=== PATIENT | female | born 1975 | race Caucasian/White ===

== ENCOUNTER 2020-05-18 17:09 | Inpatient (IN) | payer MEDICAID ==
[~2020-05-18] VITALS: Ht 180.3 cm; Wt 61.7 kg
[2020-05-18 17:56] LABS: BASOPHILS % (AUTO) 0.2 % (0.0-2.0); HEMATOCRIT 38 % (33-45); HEMOGLOBIN 12.6 g/dL (11.5-14.8); LYMPHOCYTES # (AUTO) 0.9 /CMM (0.8-4.8); LYMPHOCYTES % (AUTO) 12.6 % (20.0-44.0); MEAN CORPUSCULAR HGB CONC 34 g/dl (31.0-36.0); MEAN CORPUSCULAR VOLUME 89 fL (82-100); MONOCYTES # (AUTO) 0.2 /CMM (0.1-1.30); MONOCYTES % (AUTO) 2.9 % (2.0-12.0); NEUTROPHILS # (AUTO) 5.8 /CMM (1.8-8.9); NEUTROPHILS % (AUTO) 84.3 % (43.0-81.0); PLATELET COUNT (AUTO) 365 /CMM (150-450); RED BLOOD CELL COUNT(AUTO) 4.19 MIL/uL (4.0-5.2); WHITE BLOOD COUNT (AUTO) 6.9 K/uL (4.3-11.0)
[2020-05-18 18:04] LABS: CALCIUM, SERUM 8.8 mg/dL (8.5-10.1); CARBON DIOXIDE 16 mmol/L (21-32); CHLORIDE 98 mmol/L (98-107); CREATININE 0.9 mg/dL (0.6-1.3); GLUCOSE 329 mg/dL (74-106); POTASSIUM 3.7 mmol/L (3.5-5.1); SODIUM SERUM 135 mmol/L (136-145); UREA NITROGEN, BLOOD 15 mg/dL (7-18)
[2020-05-18] MEDS ORDERED: GABA600T12 PO (18:07)
[2020-05-18] MEDS ORDERED: INSU100I19 SQ (18:07)
[2020-05-18] MEDS ORDERED: LEVO150T8 PO (18:07)
[2020-05-18] MEDS ORDERED: GABA300C PO (18:07)
[2020-05-18] MEDS ORDERED: INSU100I4 SQ (18:07)
[2020-05-18 18:10] LABS: ALANINE AMINOTRANSFERASE 22 U/L (12-78); ALBUMIN 2.8 g/dL (3.4-5.0); ALKALINE PHOSPHATASE 58 U/L (46-116); ASPARTATE AMINOTRANSFERASE 34 U/L (15-37); BILIRUBIN,TOTAL 0.4 mg/dL (0.2-1.0)
[2020-05-18] MEDS ORDERED: INSULIN REGULAR, HUMAN 100 UNIT/ML 10 ML VIAL ONE (19:59)
[2020-05-18] MEDS ORDERED: IV NS 0.9% 1,000 ML IV PRN (20:00)
[2020-05-18] MEDS ORDERED: CEFTRIAXONE 1GM BAG (ER ONLY) 1 GM/50 ML PIGGYBACK IV ONE (20:00)
[2020-05-18] MEDS ORDERED: AZITHROMYCIN 500 MG in IV D5W 250 ML IV ONE (20:00)
[2020-05-18] MEDS ORDERED: INSULIN REGULAR, HUMAN 100 UNIT/ML 10 ML VIAL SQ ONE (20:00)
[2020-05-18] MEDS ORDERED: INSULIN REGULAR, HUMAN 100 UNIT in IV NS 0.9% 100 ML IV ONE ×2 (20:00)
[2020-05-18 20:05] LABS: CALCIUM, SERUM 8.9 mg/dL (8.5-10.1); CREATININE 0.8 mg/dL (0.6-1.3); POTASSIUM 3.6 mmol/L (3.5-5.1)
[2020-05-18 20:08] LABS: PHOSPHORUS 2.6 mg/dL (2.5-4.9)
--- NOTE | 2020-05-18 20:09 | NUR ---
TOOK OVER PT CARE. PT AAOX4. PER TRIAGE AND ASSESSMENT C/O COUGH AND CONGESTION X2 DAYS. STATED HER SON IS COVID POSITIVE. PT WAS ORIGIONALLY IN THE TENT. PT WAS PLACED IN BED 16 ON CERTIFIED CYTOTECHNOLOGIST AND PULSE OX AT 2000. UPON PLACEMENT 2 LINES INITIATED, 20G RAC & 20G LAC. BG WAS CHECKED @285, I REPORTED TO THE PA AND AWAITING ORDERS.
--- NOTE | 2020-05-18 20:12 | NUR ---
UPON CHECKING BG, 280, PA AWARE. PT ORDERED TO CANCEL INSULIN DRIP, BUT CONTINUE WITH 8 UNITS OF INSULIN SQ. Addendum: 05/18/20 at 2038 by KENDYOR 285 BG
--- NOTE | 2020-05-18 20:17 | NUR ---
PA ORDERED FOR 1L NS BOLUS. CANCEL 1L NS 250/HR ORDER.
[2020-05-18] MEDS ORDERED: CEFTRIAXONE 1GM BAG (ER ONLY) 50 ML IV ONE (20:26)
[2020-05-18] MEDS ORDERED: AZITHROMYCIN 500 MG VIAL ONE (20:26)
--- NOTE | 2020-05-18 20:28 | NUR ---
ALICIAID SWABBED, SENT TO LAB.
[2020-05-18] MEDS ORDERED: IV NS 0.9% 1,000 ML BAG IV ONE (20:30)
--- NOTE | 2020-05-18 20:35 | NUR ---
URINE COLLECTED, SENT TO LAB.
--- NOTE | 2020-05-18 20:35 | NUR ---
PT SAT 88% SWITCHED TO 4L NC, SAT 92%. PA AWARE.
--- NOTE | 2020-05-18 20:38 | NUR ---
TEMP 98.3
--- NOTE | 2020-05-18 20:39 | NUR ---
O2 SAT 95%. 4L.
[2020-05-18 20:43] LABS: BILIRUBIN,URINE SMALL (NEGATIVE); COLOR,URINE YELLOW (YELLOW); LEUKOCYTE ESTERASE ,URINE Negative (NEGATIVE); NITRITE, URINE Negative (NEGATIVE); PROTEIN,URINE >=300 mg/dl (NEGATIVE); UGLUCOSE 500 MG/DL mg/dL (NEGATIVE); UROBILINOGEN,URINE 0.2 EU/dL (0.2)
--- NOTE | 2020-05-18 20:52 | NUR ---
PT NOW RESTING COMFORTABLY. VSS.
--- NOTE | 2020-05-18 21:01 | NUR ---
REC'D POS COVID RESULTS. AWARE
--- NOTE | 2020-05-18 21:08 | NUR ---
BG 300, PA AWARE.
[2020-05-18 21:13] LABS: BACTERIA,URINE Rare /HPF (None Seen)
[2020-05-18 21:14] LABS: WBC,URINE 0-2 /HPF (0-3)
--- NOTE | 2020-05-18 21:37 | NUR ---
DR. MCCANN PAGED PER ER ORDER.
--- NOTE | 2020-05-18 21:49 | NUR ---
PT RESTING COMFORTABLY. PROVIDED WITH BLANKETS.
[2020-05-18 22:01] LABS: CALCIUM, SERUM 8.6 mg/dL (8.5-10.1); CREATININE 0.7 mg/dL (0.6-1.3); POTASSIUM 3.8 mmol/L (3.5-5.1)
[2020-05-18 22:05] LABS: MAGNESIUM 2.1 mg/dL (1.8-2.4); PHOSPHORUS 2.4 mg/dL (2.5-4.9)
--- NOTE | 2020-05-18 22:43 | NUR ---
DR. MCCANN PAGED PER ER ORDER.
--- NOTE | 2020-05-18 23:10 | NUR ---
PT C/O NAUSEA. MD AWARE
[2020-05-18] MEDS ORDERED: ONDANSETRON HCL/PF 4 MG/2 ML VIAL ONE (23:14)
[2020-05-18] MEDS ORDERED: ONDANSETRON HCL/PF 4 MG/2 ML VIAL IV PRN (23:30)
[2020-05-18 23:59] LABS: CALCIUM, SERUM 8.4 mg/dL (8.5-10.1); CREATININE 0.7 mg/dL (0.6-1.3); PHOSPHORUS 1.8 mg/dL (2.5-4.9); POTASSIUM 3.6 mmol/L (3.5-5.1)
--- NOTE | 2020-05-19 00:53 | NUR ---
PT PROVIDED WITH BED BRUNILDA. JENNY.
[2020-05-19] MEDS ORDERED: HYDROCODONE/APAP 5/325MG TABLET PO PRN (01:30)
[2020-05-19] MEDS ORDERED: ZOLPIDEM TARTRATE 5 MG TABLET PO PRN (01:30)
[2020-05-19] MEDS ORDERED: MAGNESIUM HYDROXIDE 30 ML UDC PO PRN (01:30)
[2020-05-19] MEDS ORDERED: MAG HYDROX/AL HYDROX/SIMETH 30 ML UDC PO PRN (01:30)
[2020-05-19] MEDS ORDERED: Z GUARD REMEDY 2 OZ OINT TP PRN (01:30)
[2020-05-19] MEDS ORDERED: DEXTROSE 50%-WATER 50 ML DISP.SYRIN IV PRN (01:30)
--- NOTE | 2020-05-19 02:52 | NUR ---
PT RESTING COMFORTABLY. VSS. ASLEEP.
[2020-05-19] MEDS ORDERED: ACETAMINOPHEN 325 MG TABLET ONE (03:15)
[2020-05-19] MEDS: ACETAMINOPHEN 325 MG TABLET PO PRN (03:25)
--- NOTE | 2020-05-19 03:33 | NUR ---
UPON ROUNDING, PT NOTED SAT 88% ON 4L NC. PT WAS REPOSITIONED, TEMP WAS CHECKED, 102.7. PT WAS GIVEN TYLENOL 650MG PO. COOLING MEASURES INITIATED, PT PLACED ON 6L NC. PT NOW SAT 91%. COLD WATER WAS GIVEN FOR THE PT TO DRINK. WILL RECHECK TEMP.
--- NOTE | 2020-05-19 05:05 | NUR ---
RECHECKED TEMP: 99.2. PT RESTING COMFORTABLY.
--- NOTE | 2020-05-19 07:39 | NUR ---
REPORT GIVEN TO MARKY LEON FOR WILLIAN
[2020-05-19] MEDS ORDERED: REMDESIVIR (CHARGED) 200 MG, *LOADING DOSE 1 EA in IV NS 0.9% 210 ML IV ONE (11:00)
[2020-05-19] MEDS: GABAPENTIN 300 MG CAPSULE PO SCH (11:21)
[2020-05-19] MEDS: APIXABAN 5 MG TABLET PO SCH ×2 (11:22→17:14)
[2020-05-19] MEDS: BLOOD SUGAR DIAGNOSTIC 1 EACH STRIP VI SCH ×3 (11:24→22:57)
[2020-05-19] MEDS: DEXAMETHASONE SOD PHOSPHATE 10 MG/ML VIAL IV SCH (11:37)
[2020-05-19] MEDS: LEVOTHYROXINE SODIUM 50 MCG TABLET PO SCH (11:47)
--- NOTE | 2020-05-19 13:30 | NUR ---
PT OFFERED FOOD AND IS STILL REFUSING.
--- NOTE | 2020-05-19 16:13 | NUR ---
Patient lives locally with her daughter. Prior to admission, she was working, ambulatory and independent with adl's. Family involved and supportive. She plan to return home once discharge. Addendum: 05/19/20 at 1613 by REESE JONES RN Amended: Links added.
[2020-05-19] MEDS ORDERED: ONDANSETRON HCL/PF 4 MG/2 ML VIAL ONE (16:15)
[2020-05-19] MEDS: ONDANSETRON HCL/PF 4 MG/2 ML VIAL IVP PRN (16:19)
--- NOTE | 2020-05-19 16:20 | NUR ---
PT C/O NAUSEA. ZOFRAN IVP GIVEN. SEE EMAR.
[2020-05-19] MEDS: INSULIN REGULAR, HUMAN 100 UNIT/ML 3 ML VIAL SQ PRN (17:39)
--- NOTE | 2020-05-19 18:30 | NUR ---
REPORT GIVEN TO MICHI. AWAITING TRANSFER TO FLOOR.
[2020-05-19] MEDS: GABAPENTIN 100 MG CAPSULE PO SCH (18:34)
--- NOTE | 2020-05-19 18:50 | NUR ---
RN NOTES PT TRANSFERRED FROM ER. PT CAME FROM HOME ALERT ORIENTED X4 LAO SPEAKING. PT ON 4L OF OXYGEN VIA NASAL CANULA PT HAS SHORTNESS OF BREATH, AND COUGHING. PT DOES NOT REPORT ANY PAIN AT THIS TIME. PT HAS IV ACCESS ON THE LEFT AC 2O KADI NO SWELLING, REDNESS AT SITE FLUSHING WELL.SKIN IS CLEAN NO DISCOLORATION VISIBLE OR REPORTED. BOWEL SOUNDS PRESENT AND ACTIVE ON ALL FOUR QUADRANTS. LUNG SOUNDS ARE DIMINISHED BILATERALLY. BED IS IN A LOCKED POSITION, CALL LIGHT WITHIN REACH PATIENT IS AMBULATORY WITH ASSISTANCE OF 1 PERSON Addendum: 05/19/20 at 2002 by EILEEN SCOTT RN PT HAS NO SOB ON O2 AT 4L/MIN VIA NC.WITH OCCASIONAL COUGHING BUT NOT IN DISTRESS.PT DENIES DISCOMFORT.CALL LIGHT PLACED WITHIN REACH.WILL CONTINUE TO MONITOR
[2020-05-19 19:00] VITALS: BP 131/79
[2020-05-19 21:00] VITALS: BP 114/83
--- NOTE | 2020-05-19 21:00 | NUR ---
GEOGRAPHIC INFORMATION SYSTEMS ANALYST NOTES RECEIVED REPORT FROM SONIA LEON,PATIENT CAME FROM ER AT 1850 NEW ADMISSION.ALERT,ORIENTED X4,SPEAK CONGOLESE,UNDERSTAND TAJIK,WITH CHIEF COMPLAINTS OF COUGH AND SON FEW HORS ELECTRIC SHAVER MECHANIC.SALINE LOCK RIGHT AND LEFT AC INTACT AND PATENT.ISOLATION FOR DROPLET,COVID TEST RAPID POSITIVE, PENDING PCR.CALL LIGHT IN REACH,NEEDS ANTICIPATED.
[2020-05-19 21:09] VITALS: BP 114/83
[2020-05-19] MEDS: CEFTRIAXONE 1 G in IV D5W 50 ML IV SCH ×2 (22:30→22:31)
--- NOTE | 2020-05-19 22:30 | NUR ---
MILK SAMPLER NOTES STARTED ON ROCEPHIN 1 GM IV ORDERED
--- NOTE | 2020-05-19 22:57 | NUR ---
MARKETING PR INTERN NOTES ACCU-CHECK BLOOD SUGAR CHECK 294,COVERED WITH HUMULIN R 6 UNITS PER SLIDING SCALE.
[2020-05-19] MEDS: *INSULIN REGULAR(HUMULIN R)HUM 100 UNIT/ML VIAL SQ PRN (23:08)
[2020-05-19] MEDS: AZITHROMYCIN 500 MG in IV D5W 250 ML IV SCH (23:09)
--- NOTE | 2020-05-19 23:09 | NUR ---
FORGING DIES FINAL FINISHER NOTES STARTED ON ZITHROMAX 500MG IV ORDERED.
[2020-05-19] MEDS: IV NS 0.9% 1,000 ML IV PRN (23:16)
[2020-05-19] MEDS: INSULIN GLARGINE, 100 UNIT/ML CARTRIDGE SQ SCH (23:42)
--- NOTE | 2020-05-19 23:42 | NUR ---
TELE RNNOTES DUE LANTUS 14 UNITS SQ ADMINISTERED ORDERED
[2020-05-20] VITALS (7 sets, daily range): BP systolic 112–138; BP diastolic 74–83
[2020-05-20] MEDS: ONDANSETRON HCL/PF 4 MG/2 ML VIAL IVP PRN ×2 (05:15→08:32)
--- NOTE | 2020-05-20 05:15 | NUR ---
DEHYDROGENATION CONVERTER OPERATOR NOTES FEELING NAUSEATED,ZOFRAN 4MG IV GIVEN ORDERED.
[2020-05-20] MEDS: BLOOD SUGAR DIAGNOSTIC 1 EACH STRIP VI SCH ×2 (05:30→12:16)
--- NOTE | 2020-05-20 05:30 | NUR ---
CONTROL BOARD OPERATOR NOTES ACCU-CHECK BLOOD SUGAR CHECK 301,COVERED WITH HUMULIN R 12 UNITS PER SLIDING SCALE.
[2020-05-20] MEDS: INSULIN REGULAR, HUMAN 100 UNIT/ML 3 ML VIAL SQ PRN ×2 (06:17→12:48)
--- NOTE | 2020-05-20 06:48 | NUR ---
FILM PROCESSING SHIFT SUPERVISOR NOTES FAIRLY RESTED,NO EPISODE OF SOB NOTED.NAUSEA IMPROVED WITH ZOFRAN IV.IVF INFUSING WELL.REMDESIVIR IV TO START THIS MORNING.CALL LIGHT IN REACH,NEEDS ATTENDED.IN NO ACUTE DISTRESS.
[2020-05-20 07:06] LABS: BASOPHILS % (AUTO) 0.1 % (0.0-2.0); HEMATOCRIT 37 % (33-45); HEMOGLOBIN 12.4 g/dL (11.5-14.8); LYMPHOCYTES # (AUTO) 0.7 /CMM (0.8-4.8); LYMPHOCYTES % (AUTO) 7.8 % (20.0-44.0); MEAN CORPUSCULAR HGB CONC 34 g/dl (31.0-36.0); MEAN CORPUSCULAR VOLUME 89 fL (82-100); MONOCYTES # (AUTO) 0.5 /CMM (0.1-1.30); NEUTROPHILS # (AUTO) 8.1 /CMM (1.8-8.9); NEUTROPHILS % (AUTO) 87.1 % (43.0-81.0); PLATELET COUNT (AUTO) 440 /CMM (150-450); RED BLOOD CELL COUNT(AUTO) 4.13 MIL/uL (4.0-5.2); WHITE BLOOD COUNT (AUTO) 9.4 K/uL (4.3-11.0)
[2020-05-20 07:51] LABS: CALCIUM, SERUM 8.6 mg/dL (8.5-10.1); CREATININE 0.6 mg/dL (0.6-1.3); MAGNESIUM 2.3 mg/dL (1.8-2.4); PHOSPHORUS 2.2 mg/dL (2.5-4.9); POTASSIUM 3.7 mmol/L (3.5-5.1)
--- NOTE | 2020-05-20 08:02 | NUR ---
RN NOTES PATIENT RECEIVED .ALERT,ORIENTED X4,SPEAK TAMAZIGHT,UNDERSTAND AZERBAIJANI NO SIGNS OF SOB NOTED OR REPORTED AT THIS TIME NO PAIN OR DISCOMFORT VISIBLE OR REPORTED AT THIS TIME. PATIENT ON 4 L OF OXYGEN VIA NASAL CANULA. IV ACCESS ON THE LEFT AC GAUGE 20 NO REDNESS OR SWELLING NOTED AT SITE. CALL LIGHT WITHIN REACH. BED IN A LOCKED POSITION ALL NEEDS MET AT THIS TIME WILL CONTINUE TO MONITOR
[2020-05-20] MEDS: LEVOTHYROXINE SODIUM 50 MCG TABLET PO SCH (08:32)
[2020-05-20] MEDS: GABAPENTIN 300 MG CAPSULE PO SCH (08:32)
[2020-05-20] MEDS: DEXAMETHASONE SOD PHOSPHATE 10 MG/ML VIAL IV SCH (08:32)
[2020-05-20] MEDS: APIXABAN 5 MG TABLET PO SCH ×2 (08:35→18:00)
[2020-05-20 09:41] LABS: THYROID STIMULATING HORMONE 7.284 uIU/mL (0.358-3.74)
[2020-05-20] MEDS ORDERED: INSULIN REGULAR, HUMAN 100 UNIT in IV NS 0.9% 99 ML IV PRN ×2 (11:00)
[2020-05-20] MEDS: REMDESIVIR (CHARGED) 100 MG in IV NS 0.9% 230 ML IV SCH (11:27)
[2020-05-20 11:37] LABS: ABG BASE EXCESS -12.8 mmol/L; ABG OXYGEN SATURATION 92.1 % (92.0-98.5); ABG PCO2 15.6 mmHg (35.0-45.0); ABG PH 7.394 (7.350-7.450); ABG PO2 60.4 mmHg (75.0-100.0); MetHb 0.3 % (0.0-1.5); O2Hb 90.9 % (94.0-97.0); SITE, ABG Right Radial; VENT MODE, BG 4L NC
[2020-05-20 12:09] LABS: ALBUMIN 2.5 g/dL (3.4-5.0); BILIRUBIN,DIRECT 0.1 mg/dL (0.0-0.2); BILIRUBIN,TOTAL 0.3 mg/dL (0.2-1.0)
[2020-05-20] MEDS: INSULIN REGULAR, HUMAN 100 UNIT in IV NS 0.9% 99 ML IV PRN ×2 (14:12)
[2020-05-20] MEDS: BLOOD SUGAR DIAGNOSTIC 1 EACH STRIP IN SCH ×10 (14:21→23:47)
--- NOTE | 2020-05-20 14:22 | NUR ---
PT WENT TO THE RESTROOM
--- NOTE | 2020-05-20 14:30 | NUR ---
INITIALLY STARTED THE INSULIN DRIP RUNNING AT 4.56 ML/HR .BS 304.
[2020-05-20 14:54] LABS: CALCIUM, SERUM 8.6 mg/dL (8.5-10.1); CREATININE 0.7 mg/dL (0.6-1.3); POTASSIUM 3.5 mmol/L (3.5-5.1)
--- NOTE | 2020-05-20 15:30 | NUR ---
iv insulin drip rate recalculated blood glucose level is 282 drip rate is 4.23. will continue to monitor. Addendum: 05/20/20 at 1533 by AUDIE CALLE RN 4.23/hr
[2020-05-20] MEDS: IV NS 0.9% 1,000 ML IV PRN (16:33)
[2020-05-20] MEDS ORDERED: K PHOS NEUTRAL 250 MG TABLET PO ONE (17:00)
[2020-05-20] MEDS: GABAPENTIN 100 MG CAPSULE PO SCH (17:59)
--- NOTE | 2020-05-20 19:00 | NUR ---
ON FIRST BAG OF REMDESIVIR,ZITHROMAX AND ROCEPHIN IV THERAPY WITH NO A/R NOTED FOR REMDESIVIR. NO C/O NAUSEA,NO BLEEDING ,SWELLING OR REDNESS ON THE SITE.
--- NOTE | 2020-05-20 19:04 | NUR ---
RN NOTES PATIENT IS ALERT,ORIENTED X4,SPEAK TAIWANESE,UNDERSTANDS SOME MALAGASY NO SIGNS OF SOB NOTED OR REPORTED AT THIS TIME NO PAIN OR DISCOMFORT VISIBLE OR REPORTED AT THIS TIME. PATIENT ON 4 L OF OXYGEN VIA NASAL CANULA. IV ACCESS ON THE LEFT AC GAUGE 20 NO REDNESS OR SWELLING NOTED AT SITE. PT IS ON AN INSULIN DRIP, DRIP RATE MUST BE READJUSTED HOURLY ORDERED.CALL LIGHT WITHIN REACH. BED IN A LOCKED POSITION ALL NEEDS MET AT THIS TIME WILL ENDORSE CARE TO ONCOMING NURSE.
--- NOTE | 2020-05-20 19:50 | NUR ---
ICU OVERFLOW RN NOTE: PATIENT RESTING IN BED, NO ACUTE DISTRESS NOTED. BREATHING EVEN AND UNLABORED, NO SOB NOTED ON 02 AT 4 LPM VIA NC. IV TO LAC IN PLACE. IV TO RAC IN PLACE, INFUSING INSULIN DRIP AT 3.465, PER PROTOCOL. CONTINUE TO MONITOR BLOOD SUGAR HOURLY. NO S/S OF HYPER/HYPOGLYCEMIA NOTED. ISOLATION PRECAUTIONS OBSERVED. BED LOCKED AND IN LOWEST POSITION, CALL LIGHT IN REACH. WILL CONTINUE TO MONITOR.
[2020-05-20] MEDS ORDERED: IV NS 0.9% 1,000 ML IV SCH (20:00)
[2020-05-20] MEDS: ACETAMINOPHEN 325 MG TABLET PO PRN (20:27)
[2020-05-20] MEDS: AZITHROMYCIN 500 MG in IV D5W 250 ML IV SCH (20:28)
--- NOTE | 2020-05-20 20:35 | NUR ---
ICU OVERFLOW RN NOTE: PATIENT BLOOD SUGAR LEVEL 248MG/DL, ADJUSTED INSULIN DRIP RATE TO 3.72, PER PROTOCOL. NO S/S OF HYPERGLYCEMIA NOTED. WILL CONTINUE TO MONITOR.
--- NOTE | 2020-05-20 21:50 | NUR ---
ICU OVERFLOW RN NOTE: PATIENT BLOOD SUGAR LEVEL 290MG/DL, ADJUSTED INSULIN DRIP RATE TO 4.35, PER PROTOCOL. NO S/S OF HYPERGLYCEMIA NOTED. WILL CONTINUE TO MONITOR.
[2020-05-20] MEDS: INSULIN GLARGINE, 100 UNIT/ML CARTRIDGE SQ SCH (22:44)
--- NOTE | 2020-05-20 22:50 | NUR ---
ICU OVERFLOW RN NOTE: PATIENT BLOOD SUGAR LEVEL 303MG/DL, ADJUSTED INSULIN DRIP RATE TO 4.55, PER PROTOCOL. LANTUS 14 UNITS ALSO GIVEN PER MD ORDER. NO S/S OF HYPERGLYCEMIA NOTED. WILL CONTINUE TO MONITOR.
--- NOTE | 2020-05-20 23:40 | NUR ---
ICU OVERFLOW RN NOTE: PATIENT BLOOD SUGAR LEVEL 252MG/DL, ADJUSTED INSULIN DRIP RATE TO 3.78, PER PROTOCOL. NO S/S OF HYPERGLYCEMIA NOTED. WILL CONTINUE TO MONITOR.
[2020-05-21] VITALS (38 sets, daily range): BP systolic 94–133; BP diastolic 68–96
[2020-05-21] MEDS: INSULIN REGULAR, HUMAN 100 UNIT in IV NS 0.9% 99 ML IV PRN ×4 (00:32→19:13)
[2020-05-21] MEDS: BLOOD SUGAR DIAGNOSTIC 1 EACH STRIP IN SCH ×22 (00:51→23:48)
--- NOTE | 2020-05-21 01:00 | NUR ---
ICU OVERFLOW RN NOTE: PATIENT TRANSFERRED TO ICU, REPORT GIVEN TO GUILLERMO. PATIENT BLOOD SUGAR LEVEL 225MG/DL, ADJUSTED INSULIN DRIP RATE TO 3.38, PER PROTOCOL. NO S/S OF HYPERGLYCEMIA NOTED. PATIENT TRANSFERRED WITH ACLS PROTOCOL WITH BELONGINGS AND OFF FLOOR STABLE.
--- NOTE | 2020-05-21 01:24 | NUR ---
RN NOTE RECEIVED PT WITH ONGOING INSULIN DRIP. PT ON 4L OF O2 VIA NC. NO COMPLAINTS OF PAIN OR DISCOMFORT. NO SIGNS OF RESPIRATORY DISTRESS. ONGOING ISOLATION PRECAUTIONS IN PLACE. WILL CONTINUE TO MONITOR.
--- NOTE | 2020-05-21 01:30 | NUR ---
RN NOTE BLOOD SUGAR 215. PER MD ORDER, WILL SWITCH IV FLUID ORDER TO D5 0.45%NS @100NL/HOUR AND DISCONTINUE NS @125ML/HOUR. LOOPING INSPECTOR AWARE.
[2020-05-21] MEDS: IV D5/0.45 NACL 1,000 ML IV PRN ×3 (01:40→19:15)
[2020-05-21] MEDS: ONDANSETRON HCL/PF 4 MG/2 ML VIAL IVP PRN (02:00)
--- NOTE | 2020-05-21 02:18 | NUR ---
RN NOTE PT NOTED WITH O2 SAT BETWEEN 85-90% WHILE ON 4L OF O2 VIA NC. RT AT BEDSIDE PLACED PT ON 15L NON REBREATHER WITH O2 SAT INCREASING TO 93%. WILL CONTINUE TO MONITOR.
--- NOTE | 2020-05-21 02:32 | NUR ---
RN NOTE NOTED LAST BMP TO BE DRAWN AT AROUND 05/20/20 1200. PER INFORMATION SERVICES CONSULTANT ED, OKAY TO DRAW NEXT BMP AT 0400 DURING AM LABS.
[2020-05-21 05:22] LABS: ALBUMIN 2.1 g/dL (3.4-5.0); BILIRUBIN,DIRECT 0.2 mg/dL (0.0-0.2); BILIRUBIN,TOTAL 0.3 mg/dL (0.2-1.0); CALCIUM, SERUM 8.1 mg/dL (8.5-10.1); CREATININE 0.6 mg/dL (0.6-1.3); PHOSPHORUS 2.1 mg/dL (2.5-4.9); TOTAL PROTEIN, SERUM 6.8 g/dL (6.4-8.2)
[2020-05-21 05:43] LABS: POTASSIUM 2.8 mmol/L (3.5-5.1)
--- NOTE | 2020-05-21 05:53 | NUR ---
EDWARD NOTE RECEIVED ALERT FOR CRITICAL LAB POTASSIUM 2.8. PAGED DR. BRIDGET DUMAS BOAT DIESEL MOTOR MECHANIC.) Addendum: 05/21/20 at 0645 by GUILLERMO LAO RN STILL NO CALL BACK FROM DR. SAM. [facility] AGAIN. Addendum: 05/21/20 at 0652 by GUILLERMO LAO RN STILL NO CALL BACK FROM [facility] PAGED AGAIN. GAME ADVISOR NOTIFIED. Addendum: 05/21/20 at 0724 by GUILLERMO LAO RN NO CALL BACK FROM MD. MASTERSON TO MORNING RN TO FOLLOW UP POTASSIUM LEVEL.
--- NOTE | 2020-05-21 07:24 | NUR ---
RN NOTE PT SLEEPING IN BED IN SEMI MCLAIN'S POSITION. ON 15 L NON REBREATHER. RESPIRATIONS EVEN AND UNLABORED. VITAL SIGNS STABLE VIA BESIDE MONITOR. SR VIA HEAD SAMPLER, NO SIGNS OF PAIN OR DISCOMFORT. IV LINES BOTH PATENT AND INTACT. CURRENTLY RUNNING INSULIN DRIP PER PROTOCOL AND D5 1/2 NS @ 100ML/HOUR ORDERED. CALL LIGHT WITHIN REACH, SAFETY MEASURES IN PLACE, BED LOCKED AND IN LOW POSITION, SIDE RAILS UP X 2, ENDORSED TO MORNING RN FOR WILLIAN.
--- NOTE | 2020-05-21 07:45 | NUR ---
PT SLEEPING IN BED IN SEMI MCLAIN'S POSITION. ON 15 L NON REBREATHER. RESPIRATIONS EVEN AND UNLABORED. VITAL SIGNS STABLE VIA BESIDE MONITOR. SKIN FLUSHED FLUSHED. SR VIA COFFEE WEIGHER, NO SIGNS OF PAIN OR DISCOMFORT. IV LINES BOTH PATENT AND INTACT. CURRENTLY RUNNING INSULIN DRIP PER PROTOCOL AND D5 1/2 NS @ 100ML/HOUR ORDERED. CALL LIGHT WITHIN REACH, SAFETY MEASURES IN PLACE, BED LOCKED AND IN LOW POSITION, SIDE RAILS UP X 2. ALL HOSPITAL SAFETY PRECAUTIONS IMPLEMENTED. WILL MONITOR GLUCOSE Q1H AND LABS CLOSELY AND RESP STATUS AND REPORT TO MD NEEDED.
[2020-05-21] MEDS: APIXABAN 5 MG TABLET PO SCH ×2 (08:20→17:22)
[2020-05-21] MEDS: GABAPENTIN 300 MG CAPSULE PO SCH (08:21)
[2020-05-21] MEDS: DEXAMETHASONE SOD PHOSPHATE 10 MG/ML VIAL IV SCH (08:21)
[2020-05-21] MEDS: LEVOTHYROXINE SODIUM 50 MCG TABLET PO SCH (08:21)
[2020-05-21] MEDS ORDERED: NEUTRA PHOS 1 POWD.PACKET PO ONE (09:00)
[2020-05-21 09:13] LABS: BASOPHILS % (AUTO) 0.1 % (0.0-2.0); HEMATOCRIT 37 % (33-45); HEMOGLOBIN 12.5 g/dL (11.5-14.8); LYMPHOCYTES # (AUTO) 0.9 /CMM (0.8-4.8); LYMPHOCYTES % (AUTO) 9.8 % (20.0-44.0); MEAN CORPUSCULAR HGB CONC 34 g/dl (31.0-36.0); MEAN CORPUSCULAR VOLUME 89 fL (82-100); MONOCYTES # (AUTO) 0.5 /CMM (0.1-1.30); MONOCYTES % (AUTO) 5.4 % (2.0-12.0); NEUTROPHILS # (AUTO) 7.8 /CMM (1.8-8.9); NEUTROPHILS % (AUTO) 84.7 % (43.0-81.0); PLATELET COUNT (AUTO) 480 /CMM (150-450); RED BLOOD CELL COUNT(AUTO) 4.09 MIL/uL (4.0-5.2); WHITE BLOOD COUNT (AUTO) 9.2 K/uL (4.3-11.0)
[2020-05-21] MEDS: POTASSIUM CHLORIDE 20 MEQ TAB.PRT.SR PO SCH ×2 (09:47→11:03)
[2020-05-21] MEDS ORDERED: K PHOS NEUTRAL 250 MG TABLET PO ONE (10:30)
--- NOTE | 2020-05-21 11:48 | NUR ---
REPEATED POINT OF CARE GLUCOSE LEVEL. LEVEL IS 347. NOT <10.
[2020-05-21] MEDS: REMDESIVIR (CHARGED) 100 MG in IV NS 0.9% 230 ML IV SCH (12:40)
[2020-05-21 14:27] LABS: CALCIUM, SERUM 8.1 mg/dL (8.5-10.1); CREATININE 0.5 mg/dL (0.6-1.3); POTASSIUM 3.3 mmol/L (3.5-5.1)
--- NOTE | 2020-05-21 14:31 | NUR ---
353 GLUCOSE REPORT RECEIVED FROM LAB. WILL NOTIFY MD. WILL AWAIT ORDERS.
--- NOTE | 2020-05-21 17:15 | NUR ---
PT SLEEPING IN BED IN SEMI MCLAIN'S POSITION W HOB ELEVATED 30 DEGREES. ON 15 L NON REBREATHER. RESPIRATIONS EVEN AND UNLABORED. VITAL SIGNS STABLE VIA BESIDE MONITOR. SKIN FLUSHED FLUSHED. SR VIA CORD TIRE BUILDER, NO SIGNS OF PAIN OR DISCOMFORT. IV LINE IN R AC INTACT. CURRENTLY RUNNING INSULIN DRIP PER PROTOCOL AND D5 1/2 NS @ 100ML/HOUR ORDERED. CALL LIGHT WITHIN REACH, SAFETY MEASURES IN PLACE, BED LOCKED AND IN LOW POSITION, SIDE RAILS UP X 2. ALL HOSPITAL SAFETY PRECAUTIONS IMPLEMENTED. MONITORED GLUCOSE Q1H AND LABS CLOSELY AND RESP STATUS AND REPORTED TO MD NEEDED. ORDERS IMPLEMENTED SUCCESSFULLY. ENDORSED TO PM RN.
[2020-05-21] MEDS: GABAPENTIN 100 MG CAPSULE PO SCH (17:22)
--- NOTE | 2020-05-21 19:30 | NUR ---
RN NOTE RECIEVED PT AWAKE AND ALERT/ORIENTED X 4 IN SEMI MCLAIN'S POSITION EASILY AROUSABLE. ON 15 L NON REBREATHER. ASSISTED PT TO SIT UPRIGHT RESPIRATIONS EVEN AND UNLABORED. NO SIGNS OF PAIN OR DISCOMFORT. ASSISTED TO BEDSIDE COMMODE WITHOUT PROBLEMS. VITAL SIGNS STABLE VIA BESIDE MONITOR. SR VIA BIBLIOGRAPHIC SERVICES SPECIALIST. IV LINES BOTH PATENT AND INTACT. CURRENTLY RUNNING INSULIN DRIP PER PROTOCOL CALL LIGHT WITHIN REACH, SAFETY MEASURES IN PLACE, BED LOCKED AND IN LOW POSITION, SIDE RAILS UP X 2, WILL ENDORSE TO MORNING RN FOR WILLIAN.
[2020-05-21] MEDS: CEFTRIAXONE 1 G in IV D5W 50 ML IV SCH (19:46)
[2020-05-21 19:54] LABS: CALCIUM, SERUM 8.2 mg/dL (8.5-10.1); CREATININE 0.6 mg/dL (0.6-1.3)
[2020-05-21] MEDS: AZITHROMYCIN 500 MG in IV D5W 250 ML IV SCH (20:17)
[2020-05-21 21:55] LABS: CALCIUM, SERUM 8.3 mg/dL (8.5-10.1); CREATININE 0.6 mg/dL (0.6-1.3); MAGNESIUM 2.2 mg/dL (1.8-2.4)
[2020-05-21 21:57] LABS: POTASSIUM 2.8 mmol/L (3.5-5.1)
--- NOTE | 2020-05-21 22:09 | NUR ---
RN NOTE RECEIVED ALERT FOR POTASSIUM 2.8. DR. MATOS WITH STANDING ORDER TO GIVE KCL 80MEQ FOR POTASSIUM < 3. PT ALREADY WITH ONGOING ORDER FOR KCL 40MEQ IV. WILL ORDER ADDITIONAL KCL 40MEQ IV PER MD. ORACLE DATABASE MANAGER MADE AWARE.
[2020-05-21] MEDS: POTASSIUM CL. PREMIX PERIPHER. 50 ML IV SCH ×2 (22:19→23:53)
[2020-05-21] MEDS: INSULIN GLARGINE, 100 UNIT/ML CARTRIDGE SQ SCH (23:52)
[2020-05-22] VITALS (24 sets, daily range): BP systolic 64–131; BP diastolic 26–87
--- NOTE | 2020-05-22 01:09 | NUR ---
RN NOTE LEFT WRIST IV INFILTRATED. SCOURING PADS SUPERVISOR ED PLACED 20G LEFT EXTERNAL JUGULAR IV.
[2020-05-22] MEDS: BLOOD SUGAR DIAGNOSTIC 1 EACH STRIP IN SCH ×8 (01:22→08:17)
[2020-05-22] MEDS: POTASSIUM CL. PREMIX PERIPHER. 50 ML IV SCH ×6 (01:30→07:45)
[2020-05-22 04:34] LABS: BASOPHILS % (AUTO) 0.2 % (0.0-2.0); EOSINOPHILS % (AUTO) 0.1 % (0.0-6.0); HEMATOCRIT 37 % (33-45); HEMOGLOBIN 12.5 g/dL (11.5-14.8); LYMPHOCYTES # (AUTO) 0.9 /CMM (0.8-4.8); LYMPHOCYTES % (AUTO) 9.8 % (20.0-44.0); MEAN CORPUSCULAR HGB CONC 34 g/dl (31.0-36.0); MEAN CORPUSCULAR VOLUME 89 fL (82-100); MONOCYTES # (AUTO) 0.5 /CMM (0.1-1.30); NEUTROPHILS # (AUTO) 8.1 /CMM (1.8-8.9); NEUTROPHILS % (AUTO) 84.9 % (43.0-81.0); PLATELET COUNT (AUTO) 524 /CMM (150-450); RED BLOOD CELL COUNT(AUTO) 4.16 MIL/uL (4.0-5.2); WHITE BLOOD COUNT (AUTO) 9.6 K/uL (4.3-11.0)
[2020-05-22 04:50] LABS: ALBUMIN 2.3 g/dL (3.4-5.0); BILIRUBIN,DIRECT 0.2 mg/dL (0.0-0.2); BILIRUBIN,TOTAL 0.4 mg/dL (0.2-1.0); CALCIUM, SERUM 8.3 mg/dL (8.5-10.1); CREATININE 0.6 mg/dL (0.6-1.3); MAGNESIUM 2.1 mg/dL (1.8-2.4); PHOSPHORUS 2.3 mg/dL (2.5-4.9); POTASSIUM 2.9 mmol/L (3.5-5.1); TOTAL PROTEIN, SERUM 7.1 g/dL (6.4-8.2)
[2020-05-22 05:23] LABS: C-REACTIVE PROTEIN 7.6 mg/dL (0.0-0.9)
--- NOTE | 2020-05-22 06:45 | NUR ---
RN NOTE PT SLEEPING IN BED IN SEMI MCLAIN'S POSITION EASILY AROUSABLE. ON 15 L NON REBREATHER. RESPIRATIONS EVEN AND UNLABORED. NO SIGNS OF PAIN OR DISCOMFORT. ASSISTED TO BEDSIDE COMMODE WITHOUT PROBLEMS. VITAL SIGNS STABLE VIA BESIDE MONITOR. SR VIA MACHINERY RIGGER. IV LINES BOTH PATENT AND INTACT. CURRENTLY RUNNING INSULIN DRIP PER PROTOCOL AND D5 1/2 NS @ 100ML/HOUR ORDERED AND KCL IV ORDERED. CALL LIGHT WITHIN REACH, SAFETY MEASURES IN PLACE, BED LOCKED AND IN LOW POSITION, SIDE RAILS UP X 2, WILL ENDORSE TO MORNING RN FOR WILLIAN.
--- NOTE | 2020-05-22 07:35 | NUR ---
PT SLEEPING IN BED IN SEMI MCLAIN'S POSITION W HOB ELEVATED 30 DEGREES. ON 15 L NON REBREATHER. RESPIRATIONS EVEN AND UNLABORED. VITAL SIGNS STABLE VIA BESIDE MONITOR. SKIN FLUSHED FLUSHED. SR VIA TRAILER TRUCK DRIVER, NO SIGNS OF PAIN OR DISCOMFORT. IV LINE IN R AC INTACT. CURRENTLY RUNNING INSULIN DRIP PER PROTOCOL AND D5 1/2 NS @ 100ML/HOUR ORDERED. CALL LIGHT WITHIN REACH, SAFETY MEASURES IN PLACE, BED LOCKED AND IN LOW POSITION, SIDE RAILS UP X 2. ALL HOSPITAL SAFETY PRECAUTIONS IMPLEMENTED. MONITORING GLUCOSE Q1H AND LABS CLOSELY AND RESP STATUS AND REPORTING TO MD NEEDED. ORDERS IMPLEMENTED.
[2020-05-22] MEDS: GABAPENTIN 300 MG CAPSULE PO SCH (08:33)
[2020-05-22] MEDS: POTASSIUM CHLORIDE 20 MEQ TAB.PRT.SR PO SCH ×2 (08:33→09:08)
[2020-05-22] MEDS: DEXAMETHASONE SOD PHOSPHATE 10 MG/ML VIAL IV SCH (08:33)
[2020-05-22] MEDS: LEVOTHYROXINE SODIUM 50 MCG TABLET PO SCH (08:33)
[2020-05-22] MEDS: APIXABAN 5 MG TABLET PO SCH ×2 (08:35→18:30)
--- NOTE | 2020-05-22 08:46 | NUR ---
RECEIVED ORDER TO PATIENT TO BEGIN MODERATE SLIDING SCALE PER CARLO. WILL IMPLEMENT.
[2020-05-22] MEDS ORDERED: NEUTRA PHOS 1 POWD.PACKET PO ONE (09:00)
[2020-05-22] MEDS: ACETAMINOPHEN 325 MG TABLET PO PRN (09:06)
[2020-05-22 10:28] LABS: CALCIUM, SERUM 7.9 mg/dL (8.5-10.1); CREATININE 0.6 mg/dL (0.6-1.3); POTASSIUM 3.2 mmol/L (3.5-5.1)
[2020-05-22] MEDS: REMDESIVIR (CHARGED) 100 MG in IV NS 0.9% 230 ML IV SCH (11:48)
[2020-05-22] MEDS: *INSULIN REGULAR(HUMULIN R)HUM 100 UNIT/ML VIAL SQ PRN ×2 (13:16→17:19)
[2020-05-22 13:55] LABS: CREATININE 0.6 mg/dL (0.6-1.3)
--- NOTE | 2020-05-22 18:16 | NUR ---
PT AWAKE A/OX4 SUPINE W HOB ELEVATED 30 DEGREES. ON 15 L NON REBREATHER. RESPIRATIONS EVEN AND UNLABORED. VITAL SIGNS STABLE VIA BESIDE MONITOR. SKIN FLUSHED AND WARM. SR VIA SLIVER MACHINE OPERATOR, NO SIGNS OF PAIN OR DISCOMFORT. IV LINE IN R AC INTACT. IVS PATENT AND FLUSHED. DRESSINGS INTACT. CALL LIGHT WITHIN REACH, SAFETY MEASURES IN PLACE, BED LOCKED AND IN LOW POSITION, SIDE RAILS UP X 2. ALL HOSPITAL SAFETY PRECAUTIONS IMPLEMENTED. MONITORED GLUCOSE AND LABS CLOSELY AND RESP STATUS AND REPORTEDTO MD NEEDED. ORDERS IMPLEMENTED AND PT TOLERATING WELL. WILL ENDORSE TO PM RN.
[2020-05-22] MEDS: GABAPENTIN 100 MG CAPSULE PO SCH (18:32)
--- NOTE | 2020-05-22 19:30 | NUR ---
RN NOTES RECEIVED PATIENT IN BED AOX4. CONTINUES ON 15L NON REBREATHER SATING 95%. TELE MONITOR SR. DENIES ANY PAIN OR DISCOMFORT. RESPIRATION EVEN NON LABORED. VITAL SIGNS WNL. IV SITES INTACT PATENT FLUSHES WELL. CONTINENT WITH B&B USES BED SIDE COMMODE WITH STAND BY ASSISTANCE FOR SAFETY. ALL SAFETY MEASURES IN PLACE, CALL LIGHT WITHIN REACH. BED IN LOW AND LOCKED POSITION. WILL CONT TO MONITOR FOR WILLIAN.
[2020-05-22] MEDS: AZITHROMYCIN 500 MG in IV D5W 250 ML IV SCH (20:05)
[2020-05-22] MEDS: CEFTRIAXONE 1 G in IV D5W 50 ML IV SCH (20:05)
[2020-05-22] MEDS: INSULIN GLARGINE, 100 UNIT/ML CARTRIDGE SQ SCH (21:53)
[2020-05-23] VITALS (24 sets, daily range): BP systolic 108–143; BP diastolic 54–97
[2020-05-23 04:51] LABS: BASOPHILS % (AUTO) 0.1 % (0.0-2.0); EOSINOPHILS % (AUTO) 0.2 % (0.0-6.0); HEMATOCRIT 37 % (33-45); HEMOGLOBIN 12.8 g/dL (11.5-14.8); LYMPHOCYTES # (AUTO) 0.7 /CMM (0.8-4.8); LYMPHOCYTES % (AUTO) 7.2 % (20.0-44.0); MEAN CORPUSCULAR HGB CONC 35 g/dl (31.0-36.0); MEAN CORPUSCULAR VOLUME 87 fL (82-100); MONOCYTES # (AUTO) 0.4 /CMM (0.1-1.30); MONOCYTES % (AUTO) 3.9 % (2.0-12.0); NEUTROPHILS # (AUTO) 8.9 /CMM (1.8-8.9); NEUTROPHILS % (AUTO) 88.6 % (43.0-81.0); PLATELET COUNT (AUTO) 301 /CMM (150-450); RED BLOOD CELL COUNT(AUTO) 4.22 MIL/uL (4.0-5.2)
[2020-05-23 05:18] LABS: ALBUMIN 2.2 g/dL (3.4-5.0); BILIRUBIN,DIRECT 0.3 mg/dL (0.0-0.2); BILIRUBIN,TOTAL 0.6 mg/dL (0.2-1.0); CALCIUM, SERUM 8.4 mg/dL (8.5-10.1); CREATININE 0.6 mg/dL (0.6-1.3); PHOSPHORUS 2.3 mg/dL (2.5-4.9); POTASSIUM 3.3 mmol/L (3.5-5.1); TOTAL PROTEIN, SERUM 7.1 g/dL (6.4-8.2)
--- NOTE | 2020-05-23 07:33 | NUR ---
RN NOTES NO ACUTE CHANGES NOTED, PATIENT REMAINED AOX4 CONTINUES ON OXYGEN 15L/MIN VIA NON RE BREATHER SATING 92%. VITAL SIGNS REMAINED STABLE. NO SOB NO DISTRESS NOTED. SR ON TELE MONITOR. IV SITES INTACT PATENT FLUSHES WELL NO INFILTRATION NOTED. ALL SAFETY MEASURES IN PLACE, CALL LIGHT WITHIN REACH. BED IN LOW AND LOCKED POSITION. ENDORSE TO AM NURSE FOR WILLIAN.
--- NOTE | 2020-05-23 07:34 | NUR ---
RECEIVED PATIENT IN BED. NO ACUTE DISTRESS NOTED. PATIENT A&O X4. PATIENT ON NONREBREATHER MASK AT 15L, TOLERATING WELL. PATIENT ON WINDOW INSTALLATION SUBCONTRACTOR, NSR NOTED. PATIENT RH IV ACCESS IN PLACE, LEFT IN PLACE, INTACT, FLUSHED WELL. PATIENT SAFETY MEASURES MAINTAINED. CALL LIGHT WITHIN REACH. WILL CON TINUE TO MONITOR.
[2020-05-23] MEDS ORDERED: POTASSIUM PHOSPHATE MM 15 MMOL in IV NS 0.9% 250 ML IV SCH (08:00)
[2020-05-23] MEDS: GABAPENTIN 300 MG CAPSULE PO SCH (08:43)
[2020-05-23] MEDS: DEXAMETHASONE SOD PHOSPHATE 10 MG/ML VIAL IV SCH (08:43)
[2020-05-23] MEDS: LEVOTHYROXINE SODIUM 50 MCG TABLET PO SCH (08:44)
[2020-05-23] MEDS: APIXABAN 5 MG TABLET PO SCH ×2 (08:46→17:30)
[2020-05-23] MEDS: POTASSIUM PHOSPHATE MM 7.5 MMOL in IV NS 0.9% 100 ML IV SCH ×2 (09:26→12:59)
[2020-05-23] MEDS: REMDESIVIR (CHARGED) 100 MG in IV NS 0.9% 230 ML IV SCH (11:08)
[2020-05-23] MEDS: GABAPENTIN 100 MG CAPSULE PO SCH (17:25)
--- NOTE | 2020-05-23 18:46 | NUR ---
PATIENT IN BED. NO ACUTE DISTRESS NOTED. PATIENT A&O X4. PATIENT ON NONREBREATHER MASK AT 15L, HI-FLOW AT 100%, TOLERATING WELL. PATIENT ON IRON CARRIER, NSR NOTED. PATIENT LEFT EXTERNAL JUGULAR IV ACCESS IN PLACE, LEFT IN PLACE, INTACT, FLUSHED WELL. PATIENT SAFETY MEASURES MAINTAINED. CALL LIGHT WITHIN REACH. WILL ENDORSE PLAN OF CARE TO ONCOMING SHIFT
--- NOTE | 2020-05-23 19:30 | NUR ---
RN NOTES RECEIVED PATIENT IN BED AOX4. PATIENT CURRENTLY ON NON REBREATHER MASK AT 15L HIGH FLOW 100%, SATING WELL. TELE MONITOR SR. DENIES ANY PAIN OR DISCOMFORT. RESPIRATION EVEN NON LABORED. VITAL SIGNS WNL. IV SITES INTACT PATENT FLUSHES WELL. CONTINENT WITH B&B USES BED SIDE COMMODE WITH STAND BY ASSISTANCE FOR SAFETY. ALL SAFETY MEASURES IN PLACE, CALL LIGHT WITHIN REACH. BED IN LOW AND LOCKED POSITION. WILL CONT TO MONITOR FOR WILLIAN.
[2020-05-23] MEDS: INSULIN GLARGINE, 100 UNIT/ML CARTRIDGE SQ SCH (22:10)
[2020-05-23] MEDS ORDERED: LORAZEPAM INJ 2 MG/ML VIAL IV ONE (22:30)
--- NOTE | 2020-05-23 22:30 | NUR ---
PATIENT REPORTED INCREASED IN ANXIETY, RESTLESS. DR. GILL NOTIFIED NEW ORDER TO GIVE ATIVAN 0.5ML X1 TIME ORDER NOTED AND CARRIED OUT. MEDICATION GIVEN ORDERED. WILL CONT TO MONITOR.
[2020-05-24] VITALS (35 sets, daily range): BP systolic 43–137; BP diastolic 15–95
[2020-05-24 02:40] LABS: ABG BASE EXCESS -16.9 mmol/L; ABG PCO2 18.9 mmHg (35.0-45.0); ABG PH 7.248 (7.350-7.450); ABG PO2 58.4 mmHg (75.0-100.0); AaDO2 635.7 mmHg; COHb 1.5 % (0.5-1.5); MetHb 0.3 % (0.0-1.5); O2Hb 86.4 % (94.0-97.0); SITE, ABG Left Brachial; VENT MODE, BG HFNC 60L 100% +NRB
--- NOTE | 2020-05-24 03:27 | NUR ---
RN NOTES PATIENT WAS DESATURATING 80-88%. NOTIFIED NEW ORDER RECEIVED TO INTUBATE THE PATIENT. RT AND ER NOTIFIED. PT ORALLY INTUBATED VIA ETT TUBE SIZE7.5/25, AC-26, TV-500,FIO2-100, PEEP-10. PATIENT PLACED ON [facility] VENT SETTING TOLERATING ORDERED. AMBU BAG AT BEDSIDE. VENT PLUGGED INTO RED OUTLET, ALARMS ARE SET AND AUDIBLE. WILL CONTINUE TO MONITOR CLOSELY.
[2020-05-24] MEDS: PROPOFOL 100 ML IV PRN ×4 (04:42→22:22)
[2020-05-24] MEDS ORDERED: SODIUM BICARBONATE SYR 50 MEQ/50 ML DISP.SYRIN ONE (04:43)
[2020-05-24 04:52] LABS: BASOPHILS % (AUTO) 0.1 % (0.0-2.0); HEMATOCRIT 42 % (33-45); HEMOGLOBIN 13.6 g/dL (11.5-14.8); LYMPHOCYTES # (AUTO) 1.6 /CMM (0.8-4.8); LYMPHOCYTES % (AUTO) 5.4 % (20.0-44.0); MEAN CORPUSCULAR HGB CONC 33 g/dl (31.0-36.0); MEAN CORPUSCULAR VOLUME 93 fL (82-100); MONOCYTES # (AUTO) 1.7 /CMM (0.1-1.30); MONOCYTES % (AUTO) 5.6 % (2.0-12.0); NEUTROPHILS # (AUTO) 26.9 /CMM (1.8-8.9); NEUTROPHILS % (AUTO) 88.9 % (43.0-81.0); PLATELET COUNT (AUTO) 191 /CMM (150-450); RED BLOOD CELL COUNT(AUTO) 4.53 MIL/uL (4.0-5.2)
[2020-05-24] MEDS: Sodium Bicarbonate 150 MEQ in IV D5W 1,000 ML IV PRN ×2 (04:53→19:17)
[2020-05-24 04:55] LABS: WHITE BLOOD COUNT (AUTO) 30.3 K/uL (4.3-11.0)
[2020-05-24 05:03] LABS: ALBUMIN 2.4 g/dL (3.4-5.0); BILIRUBIN,DIRECT 0.2 mg/dL (0.0-0.2); BILIRUBIN,TOTAL 0.5 mg/dL (0.2-1.0); CALCIUM, SERUM 9.6 mg/dL (8.5-10.1); CREATININE 0.9 mg/dL (0.6-1.3); MAGNESIUM 2.5 mg/dL (1.8-2.4); PHOSPHORUS 4.5 mg/dL (2.5-4.9); POTASSIUM 4.5 mmol/L (3.5-5.1); TOTAL PROTEIN, SERUM 8.4 g/dL (6.4-8.2)
--- NOTE | 2020-05-24 05:15 | NUR ---
pt intubated post abg results due to increased wob, pt sob, increased rr, decreased spo2 Addendum: 05/24/20 at 0516 by АНДРЕЙ PEREA RT Amended: Links added.
[2020-05-24 05:18] LABS: LYMPHOCYTES % (MANUAL) 6 % (16-48); MONOCYTES % (MANUAL) 4 % (0-11.0); NEUTROPHILS % (MANUAL) 90 (42-76)
--- NOTE | 2020-05-24 05:45 | NUR ---
RECEIVED CALL FROM LAB REGARDING WBC-30.3, GLUCOSE 350. NOTIFIED MD GILL. WAITING FOR CALL BACK.
[2020-05-24 05:46] LABS: C-REACTIVE PROTEIN 56.1 mg/dL (0.0-0.9)
[2020-05-24 06:14] LABS: ABG BASE EXCESS -22.2 mmol/L; ABG OXYGEN SATURATION 98.6 % (92.0-98.5); ABG PCO2 34.3 mmHg (35.0-45.0); ABG PH 6.999 (7.350-7.450); ABG PO2 168.6 mmHg (75.0-100.0); AaDO2 510.1 mmHg; MetHb 0.3 % (0.0-1.5); O2Hb 97.3 % (94.0-97.0); PEEP,BG 10 cm H2O; SITE, ABG Left Brachial; VENT MODE, BG AC 26/40 500 100 +10; VT, ABG 500 mL
--- NOTE | 2020-05-24 07:36 | NUR ---
RN NOTES CONTINUES ON VENT, SETTING TOLERATING WELL ORDERED. CONTINUES ON DIPRIVAN TOLERATING WELL. NO SOB NO DISTRESS NOTED. IV SITES INTACT PATENT FLUSHES WELL NO INFILTRATION NOTED. ALL SAFETY MEASURES IN PLACE, CALL LIGHT WITHIN REACH. BED IN LOW AND LOCKED POSITION. ENDORSE TO AM NURSE FOR WILLIAN.
[2020-05-24] MEDS ORDERED: ETOMIDATE 2 MG/ML VIAL ONE (07:59)
[2020-05-24] MEDS ORDERED: SUCCINYLCHOLINE CHLORIDE 20 MG/ML VIAL ONE (07:59)
[2020-05-24] MEDS: DEXAMETHASONE SOD PHOSPHATE 10 MG/ML VIAL IV SCH (09:01)
[2020-05-24] MEDS: GABAPENTIN 300 MG CAPSULE PO SCH (09:01)
[2020-05-24] MEDS: LEVOTHYROXINE SODIUM 50 MCG TABLET PO SCH (09:01)
[2020-05-24 09:03] LABS: ABG BASE EXCESS -17.5 mmol/L; ABG OXYGEN SATURATION 99.4 % (92.0-98.5); ABG PCO2 30.6 mmHg (35.0-45.0); ABG PH 7.142 (7.350-7.450); ABG PO2 244.5 mmHg (75.0-100.0); AaDO2 437.9 mmHg; COHb 0.6 % (0.5-1.5); O2Hb 98.8 % (94.0-97.0); PEEP,BG 10 cm H2O; SITE, ABG Left Brachial; VT, ABG 500 mL
[2020-05-24] MEDS: APIXABAN 5 MG TABLET PO SCH ×2 (09:35→17:35)
[2020-05-24] MEDS: PHENYLEPHRINE 50 MG in IV NS 0.9% 245 ML IV PRN (15:57)
[2020-05-24] MEDS ORDERED: DOSE PER PHARMACY (MD SPECIFY MEDICATION) 1 EA XX PRN (16:30)
[2020-05-24] MEDS ORDERED: REMDESIVIR (CHARGED) 200 MG, *LOADING DOSE 1 EA in IV NS 0.9% 210 ML IV ONE (16:30)
[2020-05-24] MEDS: GABAPENTIN 100 MG CAPSULE PO SCH (17:34)
[2020-05-24] MEDS: VANCOMYCIN HCL 0.75 GM in IV D5W 250 ML IV SCH (18:10)
[2020-05-24] MEDS: INSULIN REGULAR, HUMAN 100 UNIT/ML 3 ML VIAL SQ PRN (18:17)
--- NOTE | 2020-05-24 19:00 | NUR ---
RN CLOSING NOTES PT REMAINS INTUBATED, ON VENT. NO RESPIRATORY DISTRESS NOTED. NO SIGNS OF PAIN NOTED. PICC LINE AND ARTERIAL LINE IN PLACE. KEPT CLEAN AND DRY. KEPT COMFORTABLE. WILL START PT ON INSULIN DRIP. WILL ENDORSE FOR CONTINUITY OF CARE
[2020-05-24] MEDS: MEROPENEM 1 G in IV NS 0.9% 100 ML IV SCH (20:51)
[2020-05-24] MEDS ORDERED: INSULIN REGULAR, HUMAN 100 UNIT in IV NS 0.9% 99 ML IV PRN ×2 (21:00)
[2020-05-24] MEDS ORDERED: BLOOD SUGAR DIAGNOSTIC 1 EACH STRIP IN SCH (22:00)
[2020-05-24] MEDS: BLOOD SUGAR DIAGNOSTIC 1 EACH STRIP IN SCH (22:16)
[2020-05-25] VITALS (25 sets, daily range): BP systolic 73–117; BP diastolic 48–78
[2020-05-25] MEDS: BLOOD SUGAR DIAGNOSTIC 1 EACH STRIP IN SCH ×12 (00:17→23:19)
[2020-05-25 01:42] LABS: CALCIUM, SERUM 9.1 mg/dL (8.5-10.1); CREATININE 1.4 mg/dL (0.6-1.3); POTASSIUM 4.2 mmol/L (3.5-5.1)
[2020-05-25] MEDS: MEROPENEM 1 G in IV NS 0.9% 100 ML IV SCH ×3 (02:00→18:18)
[2020-05-25] MEDS: PHENYLEPHRINE 50 MG in IV NS 0.9% 245 ML IV PRN (04:26)
[2020-05-25 04:32] LABS: BASOPHILS % (AUTO) 0.1 % (0.0-2.0); EOSINOPHILS % (AUTO) 0.1 % (0.0-6.0); HEMATOCRIT 38 % (33-45); HEMOGLOBIN 12.6 g/dL (11.5-14.8); LYMPHOCYTES # (AUTO) 0.4 /CMM (0.8-4.8); LYMPHOCYTES % (AUTO) 2.5 % (20.0-44.0); MEAN CORPUSCULAR HGB CONC 33 g/dl (31.0-36.0); MEAN CORPUSCULAR VOLUME 89 fL (82-100); MONOCYTES # (AUTO) 0.4 /CMM (0.1-1.30); MONOCYTES % (AUTO) 2.6 % (2.0-12.0); NEUTROPHILS # (AUTO) 14.8 /CMM (1.8-8.9); NEUTROPHILS % (AUTO) 94.7 % (43.0-81.0); PLATELET COUNT (AUTO) 113 /CMM (150-450); RED BLOOD CELL COUNT(AUTO) 4.26 MIL/uL (4.0-5.2); WHITE BLOOD COUNT (AUTO) 15.6 K/uL (4.3-11.0)
[2020-05-25 04:54] LABS: CREATININE 1.3 mg/dL (0.6-1.3); MAGNESIUM 3.1 mg/dL (1.8-2.4); PHOSPHORUS 2.5 mg/dL (2.5-4.9); POTASSIUM 3.8 mmol/L (3.5-5.1)
[2020-05-25] MEDS ORDERED: DEXTROSE 50%-WATER 50 ML DISP.SYRIN IV PRN (05:00)
[2020-05-25] MEDS: VANCOMYCIN HCL 0.75 GM in IV D5W 250 ML IV SCH ×2 (05:02→17:15)
[2020-05-25] MEDS: PROPOFOL 100 ML IV PRN ×3 (05:03→17:14)
--- NOTE | 2020-05-25 05:06 | NUR ---
RECEIVED CALL FROM LAB TALKED TO SKYLER BS-480, LACTIC ACID-2.6 RELAYED TO HO BRANDT NEW ORDER RECEIVED NOTED AND CARRIED OUT.
[2020-05-25 05:32] LABS: BILIRUBIN,URINE SMALL (NEGATIVE); COLOR,URINE YELLOW (YELLOW); LEUKOCYTE ESTERASE ,URINE NEGATIVE (NEGATIVE); NITRITE, URINE NEGATIVE (NEGATIVE); PH,URINE 6.5 (5.0-8.0); PROTEIN,URINE 100 mg/dl (NEGATIVE); UGLUCOSE >=1000 mg/dL (NEGATIVE); UROBILINOGEN,URINE 0.2 EU/dL (0.2)
[2020-05-25 05:39] LABS: BACTERIA,URINE Few /HPF (None Seen)
[2020-05-25 05:40] LABS: SQUAMOUS EPITHELIAL CELL,UR Few /HPF (None Seen)
[2020-05-25] MEDS: INSULIN REGULAR, HUMAN 100 UNIT/ML 3 ML VIAL SQ PRN ×4 (05:42→17:34)
[2020-05-25] MEDS ORDERED: IV NS 0.9% 1,000 ML IV SCH (06:00)
--- NOTE | 2020-05-25 07:10 | NUR ---
RN INITIAL NOTES RECEIVED PT INTUBATED, ON VENT. NO RESPIRATORY DISTRESS NOTED. HOB ELEVATED. NO SIGNS OF PAIN NOTED. ON DIPRIVAN AND AMY DRIP,. TITRATE ACCORDINGLY. IVF INFUSING. MOJ[place] IN PLACE. WILL CLOSELY MONITOR
[2020-05-25] MEDS: DEXAMETHASONE SOD PHOSPHATE 10 MG/ML VIAL IV SCH (08:26)
[2020-05-25] MEDS: LEVOTHYROXINE SODIUM 50 MCG TABLET PO SCH (08:26)
[2020-05-25] MEDS: GABAPENTIN 300 MG CAPSULE PO SCH (08:26)
[2020-05-25 08:55] LABS: ABG BASE EXCESS 0.5 mmol/L; ABG OXYGEN SATURATION 95.5 % (92.0-98.5); ABG PCO2 30.2 mmHg (35.0-45.0); ABG PH 7.496 (7.350-7.450); ABG PO2 72.4 mmHg (75.0-100.0); AaDO2 322.2 mmHg; COHb 0.6 % (0.5-1.5); MetHb 0.3 % (0.0-1.5); O2Hb 94.6 % (94.0-97.0); PEEP,BG 8 cm H2O; SITE, ABG Right Radial; VT, ABG 500 mL
[2020-05-25] MEDS: APIXABAN 5 MG TABLET PO SCH ×2 (08:57→17:14)
[2020-05-25] MEDS ORDERED: IV NS 0.9% 1,000 ML IV PRN (11:00)
[2020-05-25] MEDS ORDERED: INSULIN REGULAR, HUMAN 100 UNIT in IV NS 0.9% 99 ML IV PRN ×2 (16:00)
[2020-05-25] MEDS ORDERED: REMDESIVIR (CHARGED) 100 MG in IV NS 0.9% 230 ML IV SCH (16:30)
[2020-05-25] MEDS: GABAPENTIN 100 MG CAPSULE PO SCH (17:15)
--- NOTE | 2020-05-25 18:36 | NUR ---
RN CLOSING NOTES PT REMAINS INTUBATED, ON VENT. NO RESPIRATORY DISTRESS NOTED. NO SIGNS OF PAIN NOTED. KEPT SEDATED. KEPT CLEAN AND DRY. KEPT COMFORTABLE. RESTARTING PT ON INSULIN DRIP. WILL ENDORSE FOR CONTINUITY OF CARE
[2020-05-25 23:17] LABS: CALCIUM, SERUM 8.8 mg/dL (8.5-10.1); CREATININE 0.9 mg/dL (0.6-1.3); MAGNESIUM 3.1 mg/dL (1.8-2.4); PHOSPHORUS 2.9 mg/dL (2.5-4.9); POTASSIUM 3.9 mmol/L (3.5-5.1)
[2020-05-26] VITALS (24 sets, daily range): BP systolic 91–129; BP diastolic 57–88
[2020-05-26] MEDS: IV NS 0.9% 1,000 ML IV PRN ×2 (00:40→14:38)
[2020-05-26] MEDS: MEROPENEM 1 G in IV NS 0.9% 100 ML IV SCH ×3 (01:30→19:37)
[2020-05-26 04:41] LABS: BASOPHILS % (AUTO) 0.1 % (0.0-2.0); HEMATOCRIT 35 % (33-45); HEMOGLOBIN 11.7 g/dL (11.5-14.8); LYMPHOCYTES # (AUTO) 0.5 /CMM (0.8-4.8); LYMPHOCYTES % (AUTO) 4.4 % (20.0-44.0); MEAN CORPUSCULAR HGB CONC 34 g/dl (31.0-36.0); MEAN CORPUSCULAR VOLUME 89 fL (82-100); MONOCYTES # (AUTO) 0.4 /CMM (0.1-1.30); MONOCYTES % (AUTO) 3.8 % (2.0-12.0); NEUTROPHILS # (AUTO) 9.9 /CMM (1.8-8.9); NEUTROPHILS % (AUTO) 91.7 % (43.0-81.0); PLATELET COUNT (AUTO) 111 /CMM (150-450); RED BLOOD CELL COUNT(AUTO) 3.91 MIL/uL (4.0-5.2); WHITE BLOOD COUNT (AUTO) 10.8 K/uL (4.3-11.0)
[2020-05-26 04:44] LABS: CALCIUM, SERUM 8.7 mg/dL (8.5-10.1); CREATININE 0.7 mg/dL (0.6-1.3); POTASSIUM 4.1 mmol/L (3.5-5.1)
[2020-05-26 04:47] LABS: MAGNESIUM 3.1 mg/dL (1.8-2.4); PHOSPHORUS 3.1 mg/dL (2.5-4.9)
[2020-05-26] MEDS: INSULIN REGULAR, HUMAN 100 UNIT/ML 3 ML VIAL SQ PRN ×5 (05:05→21:00)
[2020-05-26] MEDS: PROPOFOL 100 ML IV PRN ×5 (05:05→22:44)
[2020-05-26] MEDS: VANCOMYCIN HCL 0.75 GM in IV D5W 250 ML IV SCH ×2 (05:06→17:53)
[2020-05-26 06:08] LABS: ABG BASE EXCESS -0.5 mmol/L; ABG OXYGEN SATURATION 96.4 % (92.0-98.5); ABG PCO2 32.8 mmHg (35.0-45.0); ABG PH 7.459 (7.350-7.450); ABG PO2 81.5 mmHg (75.0-100.0); AaDO2 310.2 mmHg; COHb 0.7 % (0.5-1.5); MetHb 0.3 % (0.0-1.5); O2Hb 95.4 % (94.0-97.0); PEEP,BG 8 cm H2O; SITE, ABG Left Radial; VENT MODE, BG AC 28 450 60% +8; VT, ABG 450 mL
[2020-05-26] MEDS ORDERED: ZOLPIDEM TARTRATE 5 MG TABLET GT PRN (08:08)
[2020-05-26] MEDS ORDERED: MAGNESIUM HYDROXIDE 30 ML UDC GT PRN (08:08)
[2020-05-26] MEDS ORDERED: MAG HYDROX/AL HYDROX/SIMETH 30 ML UDC GT PRN (08:08)
[2020-05-26] MEDS ORDERED: HYDROCODONE/APAP 5/325MG TABLET GT PRN (08:09)
[2020-05-26] MEDS ORDERED: PHARMACY TO CHANGE PO MEDS TO GT/NG XX PRN (08:30)
[2020-05-26] MEDS: LEVOTHYROXINE SODIUM 50 MCG TABLET GT SCH (09:36)
[2020-05-26] MEDS: DEXAMETHASONE SOD PHOSPHATE 10 MG/ML VIAL IV SCH (09:37)
[2020-05-26] MEDS: GABAPENTIN 300 MG CAPSULE GT SCH (09:37)
[2020-05-26] MEDS: BLOOD SUGAR DIAGNOSTIC 1 EACH STRIP IN SCH ×4 (09:38→20:59)
[2020-05-26] MEDS: APIXABAN 5 MG TABLET GT SCH ×2 (09:38→17:54)
--- NOTE | 2020-05-26 09:50 | NUR ---
WOUND CARE CONSULT: REVIEWED CHART AND NURSING DOCUMENTATION. SPOKE WITH RN WHO STATES RT EAR HAS BLANCHABLE REDNESS. NO DEEP TISSUE INJURY NOTED PER RN. RECOMMENDATIONS MADE FOR SKIN PROTECTION. DISCUSSED WITH NURSING STAFF. MD IN AGREEMENT WITH PLAN OF CARE.
--- NOTE | 2020-05-26 10:23 | NUR ---
vent changes below per dr. desai: fio2 50% peep +5 Addendum: 05/26/20 at 1024 by RAZIA DANIEL RT Amended: Links added.
[2020-05-26 11:50] LABS: CALCIUM, SERUM 7.9 mg/dL (8.5-10.1); CREATININE 0.7 mg/dL (0.6-1.3); MAGNESIUM 2.9 mg/dL (1.8-2.4); PHOSPHORUS 2.7 mg/dL (2.5-4.9)
[2020-05-26 16:08] LABS: CALCIUM, SERUM 8.2 mg/dL (8.5-10.1); CREATININE 0.6 mg/dL (0.6-1.3); MAGNESIUM 2.7 mg/dL (1.8-2.4); PHOSPHORUS 2.9 mg/dL (2.5-4.9)
[2020-05-26] MEDS: GABAPENTIN 100 MG CAPSULE GT SCH (21:02)
[2020-05-26 22:16] LABS: CALCIUM, SERUM 7.7 mg/dL (8.5-10.1); CREATININE 0.7 mg/dL (0.6-1.3); POTASSIUM 4.4 mmol/L (3.5-5.1)
[2020-05-26 22:20] LABS: MAGNESIUM 2.6 mg/dL (1.8-2.4); PHOSPHORUS 2.6 mg/dL (2.5-4.9)
[2020-05-27] VITALS (28 sets, daily range): BP systolic 86–131; BP diastolic 53–87
[2020-05-27] MEDS: IV NS 0.9% 1,000 ML IV PRN ×2 (00:37→12:43)
[2020-05-27] MEDS: MEROPENEM 1 G in IV NS 0.9% 100 ML IV SCH ×3 (01:24→18:41)
[2020-05-27] MEDS: BLOOD SUGAR DIAGNOSTIC 1 EACH STRIP IN SCH ×6 (01:27→20:41)
[2020-05-27] MEDS: INSULIN REGULAR, HUMAN 100 UNIT/ML 3 ML VIAL SQ PRN ×6 (01:41→20:44)
--- NOTE | 2020-05-27 04:06 | NUR ---
RT NOTE PT REC'D ORALLY INTUBATED VIA ETT SZ 7.5 SECURED AT 23 CM AT THE LIPLINE. PT ON [facility] VENT ON NOTED SETTINGS CHARTED. PT SX'D FOR SMALL AMT OF YELLOW SECRETIONS. SECRETIONS. ALARMS ARE SET AND AUDIBLE. AMBU BAG BEDSIDE. VENT PLUGGED INTO RED OUTLET. WILL CONTINUE TO MONITOR CLOSELY. Addendum: 05/27/20 at 0407 by DANIEL REYNA RT Amended: Links added.
[2020-05-27] MEDS: VANCOMYCIN HCL 0.75 GM in IV D5W 250 ML IV SCH ×2 (04:51→16:57)
[2020-05-27] MEDS: PROPOFOL 100 ML IV PRN ×4 (05:35→17:29)
[2020-05-27 05:41] LABS: BASOPHILS % (AUTO) 0.2 % (0.0-2.0); EOSINOPHILS % (AUTO) 0.1 % (0.0-6.0); HEMATOCRIT 35 % (33-45); HEMOGLOBIN 11.4 g/dL (11.5-14.8); LYMPHOCYTES # (AUTO) 0.7 /CMM (0.8-4.8); LYMPHOCYTES % (AUTO) 3.8 % (20.0-44.0); MEAN CORPUSCULAR HGB CONC 33 g/dl (31.0-36.0); MEAN CORPUSCULAR VOLUME 90 fL (82-100); MONOCYTES # (AUTO) 0.6 /CMM (0.1-1.30); MONOCYTES % (AUTO) 3.3 % (2.0-12.0); NEUTROPHILS # (AUTO) 17.2 /CMM (1.8-8.9); NEUTROPHILS % (AUTO) 92.6 % (43.0-81.0); PLATELET COUNT (AUTO) 104 /CMM (150-450); RED BLOOD CELL COUNT(AUTO) 3.86 MIL/uL (4.0-5.2); WHITE BLOOD COUNT (AUTO) 18.5 K/uL (4.3-11.0)
[2020-05-27 05:47] LABS: CALCIUM, SERUM 8.1 mg/dL (8.5-10.1); CREATININE 0.6 mg/dL (0.6-1.3); POTASSIUM 3.6 mmol/L (3.5-5.1)
[2020-05-27 05:50] LABS: MAGNESIUM 2.6 mg/dL (1.8-2.4); PHOSPHORUS 2.3 mg/dL (2.5-4.9)
[2020-05-27 06:23] LABS: ABG BASE EXCESS -0.6 mmol/L; ABG OXYGEN SATURATION 91.2 % (92.0-98.5); ABG PCO2 41.7 mmHg (35.0-45.0); ABG PH 7.385 (7.350-7.450); ABG PO2 61.1 mmHg (75.0-100.0); AaDO2 393.2 mmHg; COHb 1.1 % (0.5-1.5); MetHb 0.3 % (0.0-1.5); O2Hb 89.9 % (94.0-97.0); SITE, ABG Left Radial
--- NOTE | 2020-05-27 07:30 | NUR ---
RN OPENING NOTES Patient present in bed, sedated, on mech vent, tolerating settings well, PO2 is 97%, BP is stable, Tele-monitor SR,Kent cath in place draining dark yellow urine by gravity, NGT in place, auscultated for placement and confirmed with CXR, Right upper arm PICC line in place, A-LINE on R wrist all patent, intact, and working Safety measures in place, bed is locked in lowest position, HOB elevata, will cont to monitor
[2020-05-27] MEDS: LEVOTHYROXINE SODIUM 50 MCG TABLET GT SCH (08:39)
[2020-05-27] MEDS: GABAPENTIN 300 MG CAPSULE GT SCH (08:39)
[2020-05-27] MEDS: DEXAMETHASONE SOD PHOSPHATE 10 MG/ML VIAL IV SCH (08:39)
[2020-05-27] MEDS: APIXABAN 5 MG TABLET GT SCH ×2 (09:51→17:02)
[2020-05-27] MEDS ORDERED: NEUTRA PHOS 1 POWD.PACKET PO ONE (13:00)
[2020-05-27] MEDS: GABAPENTIN 100 MG CAPSULE GT SCH (17:03)
--- NOTE | 2020-05-27 18:53 | NUR ---
RN CLOSING NOTES PATIENT IS STABLE DURING SHIFT, TOLERATING VENT WELL, NO sob, NO FEVER, NO S/SX OF DISTRESS NOTED, COMFORT MEASURES IMPLEMENTED, PATIENT IS CLEANED AND REPOSITIONED, WILL ENDORSE TO OM SHIFT FOR WILLIAN
--- NOTE | 2020-05-27 19:31 | NUR ---
EAR PULL MACHINE OPERATOR OPENING NOTES: Rec'd pt in bed, intubated 7.5/25cm at the lip and sedated.Tolerating vent settings well. No SOB or resp distress noted. ST on tele monitor. Right NGT in place, clamped. JIMMY PICC, RAC #20 patent and infusing Diprivan at 40mcg/kg/min and NS at 100ml/hr. Right wrist art line in place. Kent catheter in place, draining urine via gravity. Safety measures in place. Will continue to monitor.
[2020-05-28] VITALS (24 sets, daily range): BP systolic 89–164; BP diastolic 55–94
[2020-05-28] MEDS: PROPOFOL 100 ML IV PRN ×4 (00:07→18:13)
[2020-05-28] MEDS: BLOOD SUGAR DIAGNOSTIC 1 EACH STRIP IN SCH ×6 (00:36→21:05)
[2020-05-28] MEDS: INSULIN REGULAR, HUMAN 100 UNIT/ML 3 ML VIAL SQ PRN ×5 (00:38→21:07)
[2020-05-28] MEDS: MEROPENEM 1 G in IV NS 0.9% 100 ML IV SCH ×3 (01:31→17:51)
[2020-05-28] MEDS: ACETAMINOPHEN 650 MG/20.3 ML UDC GT PRN (04:29)
--- NOTE | 2020-05-28 04:31 | NUR ---
PAD EXTRACTION TENDER NOTE: Pt noted w/ temp of 100.0. Tylenol 650mg PRN given as ordered. Cooling measures in place. Will continue to monitor.
[2020-05-28 04:38] LABS: EOSINOPHILS % (AUTO) 0.2 % (0.0-6.0); HEMATOCRIT 29 % (33-45); HEMOGLOBIN 9.5 g/dL (11.5-14.8); LYMPHOCYTES # (AUTO) 0.6 /CMM (0.8-4.8); LYMPHOCYTES % (AUTO) 2.7 % (20.0-44.0); MEAN CORPUSCULAR HGB CONC 33 g/dl (31.0-36.0); MEAN CORPUSCULAR VOLUME 91 fL (82-100); MONOCYTES # (AUTO) 0.6 /CMM (0.1-1.30); MONOCYTES % (AUTO) 2.6 % (2.0-12.0); NEUTROPHILS # (AUTO) 20.5 /CMM (1.8-8.9); NEUTROPHILS % (AUTO) 94.5 % (43.0-81.0); PLATELET COUNT (AUTO) 84 /CMM (150-450); RED BLOOD CELL COUNT(AUTO) 3.16 MIL/uL (4.0-5.2); WHITE BLOOD COUNT (AUTO) 21.7 K/uL (4.3-11.0)
[2020-05-28] MEDS: IV NS 0.9% 1,000 ML IV PRN ×2 (05:00→14:14)
[2020-05-28] MEDS: VANCOMYCIN HCL 0.75 GM in IV D5W 250 ML IV SCH ×2 (05:00→17:10)
[2020-05-28 05:04] LABS: CALCIUM, SERUM 6.9 mg/dL (8.5-10.1); CREATININE 0.4 mg/dL (0.6-1.3); MAGNESIUM 2.1 mg/dL (1.8-2.4); PHOSPHORUS 1.5 mg/dL (2.5-4.9); POTASSIUM 3.1 mmol/L (3.5-5.1)
[2020-05-28 05:14] LABS: BAND % (MANUAL) 3 % (0.0-5.0); EOSINOPHILS % (MANUAL) 1 % (0-4); LYMPHOCYTES % (MANUAL) 1 % (16-48); MONOCYTES % (MANUAL) 6 % (0-11.0); NEUTROPHILS % (MANUAL) 89 (42-76)
--- NOTE | 2020-05-28 06:30 | NUR ---
SLAG MOTOR OPERATOR NOTE: RT did am ABG, titrated Fio2 up to 70% per results. Will continue to monitor.
--- NOTE | 2020-05-28 08:08 | NUR ---
PT RECEIVED IN BED ON PRESCRIBED VENT SETTINGS ETT 7.5/24, AC 28, TV 550, FIO2 70%, PEEP 8. PT HAS RIGHT NGT INTACT AND CLAMPED. PT HAS JIMMY MPICC AND RAC 20, RIGHT WRIST ART LINE INTACT. PT IN BED LOCKED LOWEST POSITION, CALL LIGHT WITHIN REACH, ALL SAFETY MEASURES IN PLACE. WILL CONTINUE TO MONITOR CLOSELY
[2020-05-28] MEDS: APIXABAN 5 MG TABLET GT SCH ×2 (09:00→17:00)
[2020-05-28] MEDS: GABAPENTIN 300 MG CAPSULE GT SCH (09:39)
[2020-05-28] MEDS: LEVOTHYROXINE SODIUM 50 MCG TABLET GT SCH (09:39)
[2020-05-28] MEDS: DEXAMETHASONE SOD PHOSPHATE 10 MG/ML VIAL IV SCH (09:40)
[2020-05-28] MEDS ORDERED: POTASSIUM CHLORIDE 20 MEQ TAB.PRT.SR PO ONE (10:45)
[2020-05-28 12:36] LABS: ABG BASE EXCESS 0.7 mmol/L; ABG OXYGEN SATURATION 86.4 % (92.0-98.5); ABG PO2 50.2 mmHg (75.0-100.0); AaDO2 260.2 mmHg; COHb 1.1 % (0.5-1.5); MetHb 0.3 % (0.0-1.5); O2Hb 85.2 % (94.0-97.0); PEEP,BG 8 cm H2O; SITE, ABG Left Radial; VT, ABG 450 mL
[2020-05-28] MEDS ORDERED: POTASSIUM PHOSPHATE MM 15 MMOL in IV NS 0.9% 250 ML IV SCH (13:00)
--- NOTE | 2020-05-28 16:48 | NUR ---
PER PHARMACY, OK TO GIVE VANCO IV SCHEDULED DESPITE LAST TROUGH OF 11 DRAWN ON 05/26. NEXT TROUGH ORDERED FOR 05/29 AT 1600
[2020-05-28] MEDS: GABAPENTIN 100 MG CAPSULE GT SCH (17:51)
--- NOTE | 2020-05-28 19:36 | NUR ---
PT REMAINS IN BED ON PRESCRIBED VENT SETTINGS: ETT 7.5/25, AC 28, TV 450, FIO2 65%, PEEP 10. PT O2 SAT THIS SHIFT 95-100%. PT REMAINS NPO EXCEPT MEDS. NGT CLAMPED. PT IV ACCESS REMAINS INTACT. PT BLOOD PRESSURE VARIED THIS SHIFT, SBP 140s-180s. DR THOMAS NOTIFIED, ORDERS RECEIVED FOR LAV Addendum: 05/28/20 at 1940 by JASON KINSEY RN PT REMAINS IN BED ON PRESCRIBED VENT SETTINGS: ETT 7.5/25, AC 28, TV 450, FIO2 65%, PEEP 10. PT O2 SAT THIS SHIFT 95-100%. PT REMAINS NPO EXCEPT MEDS. NGT CLAMPED. PT IV ACCESS REMAINS INTACT. PT BLOOD PRESSURE VARIED THIS SHIFT, SBP 140s-180s. DR THOMAS NOTIFIED, ORDERS RECEIVED FOR LABETALOL 10 MG PO Q4-6H PRN FOR SBP GREATER THAN 175. BED IN LOCKED LOWEST POSITION, CALL LIGHT WITHIN REACH, ALL SAFETY MEASURES IN PLACE REPORT GIVEN TO JEFF FOR WILLIAN
--- NOTE | 2020-05-28 19:47 | NUR ---
COUPON CLERK OPENING NOTES: Rec'd pt in bed, intubated 7.5/25cm at the lip and sedated.Tolerating vent settings well. No SOB or resp distress noted. ST on tele monitor. Right NGT in place, clamped. JIMMY PICC, RAC #20 patent and infusing Diprivan at 40mcg/kg/min and NS at 100ml/hr. Right wrist art line in place. Kent catheter in place, draining urine via gravity. Safety measures in place. Will continue to monitor.
[2020-05-28] MEDS ORDERED: LABETALOL HCL (100MG) 100 MG TABLET PO PRN (20:30)
--- NOTE | 2020-05-28 23:00 | NUR ---
ENGINE MAINTENANCE MECHANIC NOTE: Rec'd call from system sales consultant pharmacy in regards to pt's new Labetolol order. Stated that 10mg is only IV, if PO needs to be 100mg. Paged system sales consultant Malena Carey NP and updated on what the pharmacist said. Stated ok to change to 100mg PO.
--- NOTE | 2020-05-28 23:25 | NUR ---
PIPE COVERING MOLDER NOTE: RT titrated pt's fio2 to 100% d/t pt desaturating. Will continue to monitor.
[2020-05-29] VITALS (28 sets, daily range): BP systolic 89–129; BP diastolic 58–81
[2020-05-29] MEDS: BLOOD SUGAR DIAGNOSTIC 1 EACH STRIP IN SCH ×6 (00:35→21:00)
[2020-05-29] MEDS: INSULIN REGULAR, HUMAN 100 UNIT/ML 3 ML VIAL SQ PRN ×4 (00:37→18:55)
[2020-05-29] MEDS ORDERED: LABETALOL HCL (100MG) 100 MG TABLET PO PRN (01:00)
[2020-05-29] MEDS: PROPOFOL 100 ML IV PRN ×3 (01:10→11:46)
[2020-05-29] MEDS: IV NS 0.9% 1,000 ML IV PRN ×2 (01:50→12:36)
[2020-05-29] MEDS: MEROPENEM 1 G in IV NS 0.9% 100 ML IV SCH ×3 (02:00→18:53)
[2020-05-29] MEDS: VANCOMYCIN HCL 0.75 GM in IV D5W 250 ML IV SCH (05:00)
[2020-05-29 05:05] LABS: BASOPHILS # (AUTO) 0.3 /CMM (0.0-0.2); EOSINOPHILS % (AUTO) 0.1 % (0.0-6.0); HEMATOCRIT 32 % (33-45); HEMOGLOBIN 10.3 g/dL (11.5-14.8); LYMPHOCYTES # (AUTO) 0.5 /CMM (0.8-4.8); LYMPHOCYTES % (AUTO) 1.6 % (20.0-44.0); MEAN CORPUSCULAR HGB CONC 32 g/dl (31.0-36.0); MEAN CORPUSCULAR VOLUME 91 fL (82-100); MONOCYTES # (AUTO) 0.9 /CMM (0.1-1.30); MONOCYTES % (AUTO) 2.8 % (2.0-12.0); NEUTROPHILS # (AUTO) 28.9 /CMM (1.8-8.9); NEUTROPHILS % (AUTO) 94.5 % (43.0-81.0); PLATELET COUNT (AUTO) 144 /CMM (150-450); RED BLOOD CELL COUNT(AUTO) 3.52 MIL/uL (4.0-5.2)
[2020-05-29 05:32] LABS: WHITE BLOOD COUNT (AUTO) 30.6 K/uL (4.3-11.0)
[2020-05-29 05:35] LABS: CALCIUM, SERUM 7.6 mg/dL (8.5-10.1); CREATININE 0.3 mg/dL (0.6-1.3); MAGNESIUM 2.5 mg/dL (1.8-2.4); PHOSPHORUS 2.2 mg/dL (2.5-4.9); POTASSIUM 4.1 mmol/L (3.5-5.1)
[2020-05-29 06:41] LABS: BAND % (MANUAL) 2 % (0.0-5.0); LYMPHOCYTES % (MANUAL) 2 % (16-48); MONOCYTES % (MANUAL) 3 % (0-11.0); NEUTROPHILS % (MANUAL) 93 (42-76)
--- NOTE | 2020-05-29 06:54 | NUR ---
PHOTOLITHOGRAPHER NOTE: 0533: Spoke w/ Dr. Herron, radiologist who said pt's cxr shows new right pneumothorax about 4.7cm from chest wall w/ leftward mediastinal shift. 0632: Paged Malena Carey, KARLY and relayed cxr results. Stated pt might need chest tube. She reached out to ER who said they did not want to do it and wants cardiothoracic to do it. She stated she will reach out to Dr. Cancino.
--- NOTE | 2020-05-29 07:23 | NUR ---
PT RECEIVED IN BED, ON PRESCRIBED VENT SETTINGS 7.5/25, AC 28, TV 450, FIO2 100%, PEEP 10. PT ON MONITOR SHOWING ST. PT HAS RIGHT NGT CLAMPED. MOJICA IN PLACE. PT IS NPO EXCEPT MEDS. PT HAS JIMMY PICC, RAC 20, RIGHT WRIST ART LINE INTACT AND IN PLACE. PT HAS PROPOFOL AT 40 MCG AND NS AT 100 ML/HR. PREVIOUS RN REPORTS THAT PT CXR THIS AM SHOWS PNEUMOTHROAX RIGHT-SIDE, 4.7 CM FROM CHEST WALL, TO NOTIFY MD ROGERS. PT IN BED LOCKED LOWEST POSITION ,CALL LIGHT WITHIN REACH, ALL SAFETY MEASURES IN PLACE. WILL CONTINUE TO MONITOR CLOSELY
[2020-05-29] MEDS: GABAPENTIN 300 MG CAPSULE GT SCH (08:45)
[2020-05-29] MEDS: LEVOTHYROXINE SODIUM 50 MCG TABLET GT SCH (08:45)
[2020-05-29] MEDS: APIXABAN 5 MG TABLET GT SCH ×2 (08:46→17:00)
--- NOTE | 2020-05-29 11:00 | NUR ---
0900 SCHEDULED ELIQUIS NON-ADMIN DUE TO CHEST TUBE INSERTION. BOLIVAR THOMAS INSERTED CHEST TUBE INTO RIGHT SIDE CHEST, SEROSANGUINOUS FLUID. O2 SATS NOW 92-95%. CHEST TUBE SET TO SUCTION AT 20 MMHG PER BOLIVAR THOMAS.
[2020-05-29] MEDS ORDERED: DOSE PER PHARMACY MICAFUNGIN 1 EA XX PRN (13:30)
[2020-05-29] MEDS ORDERED: K PHOS NEUTRAL 250 MG TABLET PO ONE (15:00)
[2020-05-29] MEDS: ACETAMINOPHEN 650 MG/20.3 ML UDC GT PRN (15:56)
[2020-05-29] MEDS: MICAFUNGIN SODIUM 100 MG in IV NS 0.9% 100 ML IV SCH (15:57)
[2020-05-29] MEDS: GABAPENTIN 100 MG CAPSULE GT SCH (18:53)
[2020-05-30] VITALS (79 sets, daily range): BP systolic 94–118; BP diastolic 59–80
[2020-05-30] MEDS: PROPOFOL 100 ML IV PRN ×4 (00:15→20:36)
--- NOTE | 2020-05-30 01:16 | NUR ---
fio2 increased due to decreased spo2. rn notified Addendum: 05/30/20 at 0116 by АНДРЕЙ PEREA RT Amended: Links added.
[2020-05-30] MEDS: ACETAMINOPHEN 650 MG/20.3 ML UDC GT PRN (01:21)
[2020-05-30] MEDS: BLOOD SUGAR DIAGNOSTIC 1 EACH STRIP IN SCH ×6 (03:23→20:42)
[2020-05-30] MEDS: MEROPENEM 1 G in IV NS 0.9% 100 ML IV SCH ×3 (03:24→18:17)
[2020-05-30] MEDS: PHENYLEPHRINE 50 MG in IV NS 0.9% 245 ML IV PRN ×2 (03:40→19:06)
[2020-05-30 04:47] LABS: BASOPHILS % (AUTO) 0.1 % (0.0-2.0); EOSINOPHILS % (AUTO) 0.1 % (0.0-6.0); HEMATOCRIT 31 % (33-45); HEMOGLOBIN 9.9 g/dL (11.5-14.8); LYMPHOCYTES # (AUTO) 0.3 /CMM (0.8-4.8); LYMPHOCYTES % (AUTO) 1.5 % (20.0-44.0); MEAN CORPUSCULAR HGB CONC 32 g/dl (31.0-36.0); MEAN CORPUSCULAR VOLUME 93 fL (82-100); MONOCYTES # (AUTO) 0.9 /CMM (0.1-1.30); MONOCYTES % (AUTO) 3.7 % (2.0-12.0); NEUTROPHILS # (AUTO) 21.9 /CMM (1.8-8.9); NEUTROPHILS % (AUTO) 94.6 % (43.0-81.0); PLATELET COUNT (AUTO) 106 /CMM (150-450); RED BLOOD CELL COUNT(AUTO) 3.36 MIL/uL (4.0-5.2); WHITE BLOOD COUNT (AUTO) 23.1 K/uL (4.3-11.0)
[2020-05-30 04:57] LABS: CALCIUM, SERUM 7.7 mg/dL (8.5-10.1); CREATININE 0.6 mg/dL (0.6-1.3); MAGNESIUM 3.2 mg/dL (1.8-2.4); PHOSPHORUS 1.9 mg/dL (2.5-4.9); POTASSIUM 3.3 mmol/L (3.5-5.1)
[2020-05-30] MEDS: INSULIN REGULAR, HUMAN 100 UNIT/ML 3 ML VIAL SQ PRN ×5 (05:35→21:01)
[2020-05-30 05:45] LABS: ABG BASE EXCESS -3.8 mmol/L; ABG OXYGEN SATURATION 89.4 % (92.0-98.5); ABG PCO2 47.7 mmHg (35.0-45.0); ABG PH 7.296 (7.350-7.450); ABG PO2 59.7 mmHg (75.0-100.0); AaDO2 605.6 mmHg; COHb 0.9 % (0.5-1.5); MetHb 0.3 % (0.0-1.5); O2Hb 88.3 % (94.0-97.0); PEEP,BG 6 cm H2O; SITE, ABG Left Radial; VENT MODE, BG AC 28 450 100% +6; VT, ABG 450 mL
--- NOTE | 2020-05-30 07:55 | NUR ---
RECEIVED PATIENT IN BED. NO ACUTE DISTRESS NOTED. PATIENT SEDATED ON PROPOFOL. PATIENT INTUBATED, TOLERATING VENTILATOR SETTINGS WELL. PATIENT ON RELIEF MATE, SINUS TACHYCARDIA NOTED. PATIENT RIGHT NGT IN PLACE, CLAMPED, NPO EXCEPT MEDS STATUS ACKNOWLEDGED. PATIENT MOJICA CATHETER IN PLACE. PATIENT JIMMY PICC IN PLACE, INTACT, FLUSHED WELL. PATIENT BILATERAL SOFT WRIST RESTRAINTS IN PLACE. PATIENT SAFETY MEASURES MAINTAINED. WILL CONTINUE TO MONITOR.
[2020-05-30] MEDS: LEVOTHYROXINE SODIUM 50 MCG TABLET GT SCH (08:49)
[2020-05-30] MEDS: GABAPENTIN 300 MG CAPSULE GT SCH (08:49)
[2020-05-30] MEDS: APIXABAN 5 MG TABLET GT SCH ×2 (08:50→17:54)
[2020-05-30] MEDS ORDERED: POTASSIUM CHLORIDE 20 MEQ POWDER PACKET GT SCH (10:30)
[2020-05-30] MEDS: MICAFUNGIN SODIUM 100 MG in IV NS 0.9% 100 ML IV SCH (14:43)
[2020-05-30] MEDS ORDERED: K PHOS NEUTRAL 250 MG TABLET PO ONE (16:30)
[2020-05-30] MEDS: GABAPENTIN 100 MG CAPSULE GT SCH (17:53)
--- NOTE | 2020-05-30 18:31 | NUR ---
PATIENT IN BED. NO ACUTE DISTRESS NOTED. PATIENT SEDATED ON PROPOFOL. PATIENT INTUBATED, TOLERATING VENTILATOR SETTINGS WELL. PATIENT ON VP PROJECT, SINUS TACHYCARDIA NOTED. PATIENT RIGHT NGT IN PLACE, CLAMPED, NPO EXCEPT MEDS STATUS ACKNOWLEDGED. PATIENT MOJICA CATHETER IN PLACE. PATIENT JIMMY PICC IN PLACE, INTACT, FLUSHED WELL. PATIENT BILATERAL SOFT WRIST RESTRAINTS IN PLACE. PATIENT SAFETY MEASURES MAINTAINED. WILL ENDORSE PLAN OF CARE TO ONCOMING SHIFT
--- NOTE | 2020-05-30 19:15 | NUR ---
RN OPENING NOTES RECEIVED PT IN BED. SEDATED AND INTUBATED 7.5/25CM AT THE LIP. ON MECHANICAL VENTILATION; AC 28 TV 450 FIO2 100% AND PEEP OF 10. TOLERATING WELL, NO SOB OR RESP DISTRESS NOTED. CARDIAC MONITORING IN PLACE, ST PT BASELINE HEART RATE 105. RIGHT NGT IN PLACE, CLAMPED. JIMMY PICC AND RAC #20 PATENT INFUSING DIPRIVAN AT 40 MCG/KG/MIN AND NS @100ML/HR. PT ON AMY AT 0.8 MCG/KG/MIN TO MAINTAIN BP, WILL TITRATE ACCORDING TO PROTOCOL/ORDER. RIGHT WRIST ARTERIAL LINE PRESENT. PT HAS MOJICA DRAINING TO GRAVITY. SOFT MAGALYS WRIST RESTRAINTS IN PLACE, SKIN AND CIRCULATION CHECKED. SAFETY MEASURES IN PLACE. HOB ELEVATED. SIDE RAILS UP X2. BED LOCKED IN LOWEST POSITION. WILL CONT TO MONITOR. Addendum: 05/31/20 at 0304 by IDANIA ALMENDAREZ RN 21CM
--- NOTE | 2020-05-30 19:30 | NUR ---
PT HAS CHEST TUBE ON RIGHT SIDE D/T PNEUMOTHORAX
--- NOTE | 2020-05-30 20:19 | NUR ---
RT NOTE PT RECEIVED INTUBATED WITH 7.5 ET TUBE @ 21 CM ON LEFT LIP LINE. MOVED ET TUBE TO MID LIP LINE. CUFF INFLATED. AMBU BAG @ HOB. SX DONE, SMALL THICK SECRETIONS NOTED. ALARMS ON AND AUDIBLE. NO DISTRESS NOTED AT THIS TIME. WILL CONTINUE TO MONITOR CLOSELY. VENT PLUGGED TO RED OUTLET. Addendum: 05/30/20 at 2020 by LORNE ROWE RT Amended: Links added.
[2020-05-30] MEDS: IV NS 0.9% 1,000 ML IV PRN (23:49)
[2020-05-31] VITALS (71 sets, daily range): BP systolic 70–116; BP diastolic 44–76
[2020-05-31] MEDS: BLOOD SUGAR DIAGNOSTIC 1 EACH STRIP IN SCH ×6 (01:04→21:55)
[2020-05-31] MEDS: MEROPENEM 1 G in IV NS 0.9% 100 ML IV SCH ×3 (01:04→17:05)
[2020-05-31] MEDS: PROPOFOL 100 ML IV PRN ×3 (01:19→21:14)
[2020-05-31] MEDS: INSULIN REGULAR, HUMAN 100 UNIT/ML 3 ML VIAL SQ PRN ×6 (01:23→22:22)
--- NOTE | 2020-05-31 02:00 | NUR ---
RN NOTE @0030 BUBBLING IN WATER CHAMBER FROM CHEST TUBE NOTED CHARGE NURSE AWARE. NO CHANGE IN PT CONDITION AT THIS TIME. NOTIFIED LUMBER TAILER BULKERFEDERICO REGARDING SITUATION. NO NEW ORDERS AT THIS TIME, JUST ENDORSE TO AM NURSE AND CONTINUE TO MONITOR AT THIS TIME.
[2020-05-31 04:46] LABS: BASOPHILS # (AUTO) 0.1 /CMM (0.0-0.2); BASOPHILS % (AUTO) 0.3 % (0.0-2.0); EOSINOPHILS % (AUTO) 0.1 % (0.0-6.0); HEMATOCRIT 31 % (33-45); HEMOGLOBIN 9.8 g/dL (11.5-14.8); LYMPHOCYTES # (AUTO) 0.6 /CMM (0.8-4.8); LYMPHOCYTES % (AUTO) 2.2 % (20.0-44.0); MEAN CORPUSCULAR HGB CONC 32 g/dl (31.0-36.0); MEAN CORPUSCULAR VOLUME 92 fL (82-100); MONOCYTES # (AUTO) 0.9 /CMM (0.1-1.30); MONOCYTES % (AUTO) 3.6 % (2.0-12.0); NEUTROPHILS % (AUTO) 93.8 % (43.0-81.0); PLATELET COUNT (AUTO) 134 /CMM (150-450); RED BLOOD CELL COUNT(AUTO) 3.32 MIL/uL (4.0-5.2); WHITE BLOOD COUNT (AUTO) 25.6 K/uL (4.3-11.0)
[2020-05-31 04:55] LABS: CALCIUM, SERUM 7.3 mg/dL (8.5-10.1); CREATININE 0.6 mg/dL (0.6-1.3); MAGNESIUM 2.4 mg/dL (1.8-2.4); PHOSPHORUS 1.7 mg/dL (2.5-4.9); POTASSIUM 3.5 mmol/L (3.5-5.1)
[2020-05-31 05:29] LABS: ABG BASE EXCESS -0.3 mmol/L; ABG OXYGEN SATURATION 92.9 % (92.0-98.5); ABG PCO2 61.3 mmHg (35.0-45.0); ABG PH 7.269 (7.350-7.450); ABG PO2 69.6 mmHg (75.0-100.0); AaDO2 582.1 mmHg; COHb 0.8 % (0.5-1.5); MetHb 0.3 % (0.0-1.5); O2Hb 91.9 % (94.0-97.0); PEEP,BG 10 cm H2O; SITE, ABG Left Radial; VENT MODE, BG AC 28 450 100% +10; VT, ABG 450 mL
--- NOTE | 2020-05-31 07:30 | NUR ---
RN CLOSING NOTES PT STILL ON SAME VENT SETTINGS ORDERED, NO CHANGE IN SETTINGS AND NO CHANGE IN CONDITION. PT TOLERATING SETTINGS WELL. SATURATION IS AT 93% AT THIS TIME. NO SOB OR RESP DISTRESS NOTED, BREATHING EVEN AND UNLABORED AT THIS TIME. PT IS ON TELE MONITORING DISPLAYING ST HEART RATE 110 BASELINE TO PT. AMY AT O.8 MCG/KG/MIN AND PROPOFOL AT 40 MCG/KG/MIN. BED BATH DONE. SAFETY MEASURE IN PLACE. HOB ELEVATED. SIDE RAILS UP X2. BED LOCKED IN LOWEST POSITION. ENDORSED TO AM NURSE FOR CONT OF CARE.
--- NOTE | 2020-05-31 07:46 | NUR ---
agricultural technician note patient in bed with ett tube to vent setting as ordered ,sedated rt ng tube in place, on tele monitor st 113 -116 on npo status rt upper arm pic line and rac hl intact rt ac wrist a line on ivf as ordered and Diprivan and estella drip as ordered , bed in lowest and locked position saturation rt chest tube ti suction with bubbling in water chamber ,will monitor and report to doctor
[2020-05-31] MEDS: GABAPENTIN 300 MG CAPSULE GT SCH (08:31)
[2020-05-31] MEDS: LEVOTHYROXINE SODIUM 50 MCG TABLET GT SCH (08:31)
[2020-05-31] MEDS: APIXABAN 5 MG TABLET GT SCH ×2 (08:32→16:55)
--- NOTE | 2020-05-31 09:41 | NUR ---
director nicu note dr desai updated patient condition notified that with chest tune water seel chamber with bubbling no new order given
[2020-05-31] MEDS: IV NS 0.9% 1,000 ML IV PRN (10:53)
[2020-05-31] MEDS: PHENYLEPHRINE 50 MG in IV NS 0.9% 245 ML IV PRN (10:53)
--- NOTE | 2020-05-31 11:08 | NUR ---
sericulturist note per eNal Montgomery dnp ok to renew soft restrain
--- NOTE | 2020-05-31 13:00 | NUR ---
rn neonatal icu note dr virgil Montgomery at bedside notified that water seal chamber of chest tube with bubbling stated its ok also notified that hr 120 no need prn med at this time
[2020-05-31] MEDS ORDERED: NEUTRA PHOS 1 POWD.PACKET PO ONE (14:30)
[2020-05-31] MEDS: MICAFUNGIN SODIUM 100 MG in IV NS 0.9% 100 ML IV SCH (14:32)
[2020-05-31] MEDS: IV 1/2NS 1000 ML 1,000 ML IV PRN (14:38)
--- NOTE | 2020-05-31 16:00 | NUR ---
silviculture forester note spoke with dr desai notified that saturation 91% on fio2 100% stated its ok for now, will monitor
[2020-05-31] MEDS: GABAPENTIN 100 MG CAPSULE GT SCH (17:03)
--- NOTE | 2020-05-31 18:20 | NUR ---
BAT PERSON NOTE PATIENT IN BED ,ALL NEEDS ATTENDED WITH ETT TO VENT SETTING ORDERED , ON TELE MONITOR STILL TACHYCARDIC , HR 117 SATURATION 94% WITH MOJICA CATH TO GRAVITY . CONT ON IVF AND AMY AND DIPRIVAN DRIP ORDERED , WLL MONITOR
--- NOTE | 2020-05-31 20:42 | NUR ---
RT pt received on mechanical vent with current settings. ett size 7.5, 21@lip. ett secure. vent plugged in to red outlet. ambu bag at [facility]. alarms on and audible. no sob, no resp distress. will continue to monitor.
[2020-05-31] MEDS ORDERED: DILTIAZEM HCL 50 MG IV IV ONE (23:30)
[2020-06-01] VITALS (89 sets, daily range): BP systolic 56–160; BP diastolic 26–93
[2020-06-01] MEDS: ACETAMINOPHEN 650 MG/20.3 ML UDC GT PRN (00:02)
[2020-06-01] MEDS: PHENYLEPHRINE 50 MG in IV NS 0.9% 245 ML IV PRN ×6 (00:29→20:26)
[2020-06-01] MEDS ORDERED: AMIODARONE 150 MG/3 ML VIAL IV ONE ×2 (00:50)
[2020-06-01] MEDS ORDERED: AMIODARONE 450 MG in IV D5W 250 ML IV PRN (01:00)
[2020-06-01] MEDS ORDERED: AMIODARONE 150 MG in IV D5W 100 ML IV ONE (01:00)
[2020-06-01] MEDS: IV 1/2NS 1000 ML 1,000 ML IV PRN (01:08)
[2020-06-01] MEDS: BLOOD SUGAR DIAGNOSTIC 1 EACH STRIP IN SCH ×7 (01:32→21:54)
--- NOTE | 2020-06-01 01:45 | NUR ---
Found patient to be in asystole and code blue initiated with high quality compressions. received ROSC at 0150 with good pulses. will continue to monitor.
--- NOTE | 2020-06-01 01:45 | NUR ---
Patient critically ill cardiac rhythm Afib with RVR 170's as well with 12 lead EKG. Cardizem 10 mg slow ivp given as ordered but patient unresponsive to medication.DNP,Stefani Santiago ordered Amiodarone.Bolus given and gtt started at 0113.Patient BP via arterial monitoring 49/21 called to Stefani with order to stop Amiodarone gtt.
[2020-06-01] MEDS: MEROPENEM 1 G in IV NS 0.9% 100 ML IV SCH ×3 (02:12→18:50)
--- NOTE | 2020-06-01 02:12 | NUR ---
RT @0130 code blue was called. compressions were performed. rosc was achieved. Addendum: 06/01/20 at 0348 by FRANKIE STEPHENS code was called at 0141
[2020-06-01] MEDS ORDERED: NOREPINEPHRINE 4 MG/4 ML AMPUL IV ONE ×2 (02:23→23:50)
[2020-06-01] MEDS: NOREPINEPHRINE 8 MG in IV NS 0.9% 242 ML IV PRN ×2 (02:34→07:59)
[2020-06-01] MEDS ORDERED: CALCIUM CHLORIDE 1,000 MG/10 ML DISP.SYRIN ONE (02:50)
[2020-06-01] MEDS ORDERED: EPINEPHRINE (1:1000) 1 MG/ML AMPUL ONE (02:54)
[2020-06-01] MEDS ORDERED: EPINEPHRINE (1:1000) 10 MG in IV NS 0.9% 240 ML IV PRN (03:00)
[2020-06-01] MEDS: EPINEPHRINE (1:1000) 5 MG in IV NS 0.9% 245 ML IV PRN ×4 (03:03→18:58)
[2020-06-01] MEDS ORDERED: SODIUM BICARBONATE SYR 50 MEQ/50 ML DISP.SYRIN IV ONE ×2 (03:30→14:28)
[2020-06-01 03:31] LABS: ABG OXYGEN SATURATION 81.6 % (92.0-98.5); ABG PCO2 70.6 mmHg (35.0-45.0); ABG PH 6.783 (7.350-7.450); ABG PO2 70.7 mmHg (75.0-100.0); AaDO2 571.7 mmHg; O2Hb 80.8 % (94.0-97.0); SITE, ABG A-Line; VENT MODE, BG AC 28 450 100% +10
[2020-06-01 03:36] LABS: BASOPHILS # (AUTO) 0.1 /CMM (0.0-0.2); BASOPHILS % (AUTO) 0.3 % (0.0-2.0); EOSINOPHILS % (AUTO) 0.1 % (0.0-6.0); HEMATOCRIT 34 % (33-45); HEMOGLOBIN 9.5 g/dL (11.5-14.8); LYMPHOCYTES # (AUTO) 2.1 /CMM (0.8-4.8); LYMPHOCYTES % (AUTO) 7.5 % (20.0-44.0); MEAN CORPUSCULAR HGB CONC 28 g/dl (31.0-36.0); MEAN CORPUSCULAR VOLUME 104 fL (82-100); MONOCYTES # (AUTO) 0.6 /CMM (0.1-1.30); MONOCYTES % (AUTO) 2.2 % (2.0-12.0); NEUTROPHILS # (AUTO) 24.7 /CMM (1.8-8.9); NEUTROPHILS % (AUTO) 89.9 % (43.0-81.0); PLATELET COUNT (AUTO) 123 /CMM (150-450); RED BLOOD CELL COUNT(AUTO) 3.23 MIL/uL (4.0-5.2); WHITE BLOOD COUNT (AUTO) 27.5 K/uL (4.3-11.0)
--- NOTE | 2020-06-01 03:40 | NUR ---
RT @0235 code blue was called for second code on pt. cpr was performed. rosc was achieved for second time. pulse was lost again. cpr was continued. rosc was achieved for third time. pulse was lost, cpr was performed, rosc was acheived fourth time. abg was ordered. abg results: ph 6.78 co2 70 o2 70 hco3 10 will continue to monitor pt.
[2020-06-01 03:44] LABS: CALCIUM, SERUM 9.3 mg/dL (8.5-10.1); CARBON DIOXIDE 13 mmol/L (21-32); CHLORIDE 119 mmol/L (98-107); CREATININE 1.3 mg/dL (0.6-1.3); GLUCOSE 165 mg/dL (74-106); POTASSIUM 5.5 mmol/L (3.5-5.1); SODIUM SERUM 152 mmol/L (136-145); UREA NITROGEN, BLOOD 35 mg/dL (7-18)
[2020-06-01 03:59] LABS: ALANINE AMINOTRANSFERASE 2498 U/L (12-78); ALKALINE PHOSPHATASE 347 U/L (46-116); BILIRUBIN,TOTAL 0.8 mg/dL (0.2-1.0); TOTAL PROTEIN, SERUM 5.6 g/dL (6.4-8.2)
[2020-06-01] MEDS ORDERED: Sodium Bicarbonate 100 MEQ in IV 1/2NS 1000 ML 1,000 ML IV PRN (04:00)
[2020-06-01] MEDS ORDERED: IV NS 0.9% 1,000 ML IV ONE (04:00)
[2020-06-01 04:19] LABS: ASPARTATE AMINOTRANSFERASE 1671 U/L (15-37)
[2020-06-01 04:27] LABS: MAGNESIUM 3.4 mg/dL (1.8-2.4)
[2020-06-01] MEDS ORDERED: PHENYLEPHRINE 10 MG/ML VIAL ONE (04:28)
[2020-06-01 04:30] LABS: ALBUMIN 0.8 g/dL (3.4-5.0); PHOSPHORUS 10.1 mg/dL (2.5-4.9)
[2020-06-01] MEDS: INSULIN REGULAR, HUMAN 100 UNIT/ML 3 ML VIAL SQ PRN ×4 (05:34→21:56)
[2020-06-01] MEDS ORDERED: VASOPRESSIN INJ 20 UNIT/ML VIAL ONE (05:43)
[2020-06-01] MEDS: VASOPRESSIN INJ 40 UNIT in IV NS 0.9% 38 ML IV PRN ×2 (05:58→14:06)
[2020-06-01 06:11] LABS: ABG BASE EXCESS -22.5 mmol/L; ABG OXYGEN SATURATION 75.7 % (92.0-98.5); ABG PCO2 60.7 mmHg (35.0-45.0); ABG PH 6.854 (7.350-7.450); ABG PO2 60.3 mmHg (75.0-100.0); COHb 1.2 % (0.5-1.5); MetHb 0.3 % (0.0-1.5); O2Hb 74.6 % (94.0-97.0); SITE, ABG A-Line; VENT MODE, BG AC 28 450 100% +10
--- NOTE | 2020-06-01 07:20 | NUR ---
RN INITIAL NOTES RECEIVED PT INTUBATED, ON VENT. NO RESPIRATORY DISTRESS NOTED. NO SIGNS OF PAIN NOTED. NGT IN PLACE, CLAMPED. PT ON MULTIPLE DRIPS, EPI, LEVO, VASO AND AMY. WILL TITRATE ACCORDINGLY. IVF INFUSING. MOJICA IN PLACE. PT UNSTABLE. WILL CLOSELY MONITOR
--- NOTE | 2020-06-01 08:03 | NUR ---
Patient remains in critical condition at this time. Patient on multiple drips including levo 1 mcg, estella 3 mcg, vasopressin 0.04, epi 0.1 mcg, sodium bicarb 100 meq, 1/2 ns at 100. Patient tolerating blood pressure support medication at this time. patient tolerating vent setting well. will endorse care to am RN for continuity of care.
[2020-06-01] MEDS: GABAPENTIN 300 MG CAPSULE GT SCH (08:24)
[2020-06-01] MEDS: LEVOTHYROXINE SODIUM 50 MCG TABLET GT SCH (08:24)
[2020-06-01] MEDS: NOREPINEPHRINE 32 MG in IV NS 0.9% 218 ML IV PRN ×3 (09:00→23:11)
[2020-06-01] MEDS: APIXABAN 5 MG TABLET GT SCH ×2 (09:01→16:40)
[2020-06-01] MEDS: Sodium Bicarbonate 150 MEQ in IV D5W 1,000 ML IV PRN (09:21)
[2020-06-01 09:46] LABS: BILIRUBIN,DIRECT 1.2 mg/dL (0.0-0.2)
[2020-06-01] MEDS ORDERED: SODIUM POLYSTYRENE SULFONATE 15 G/60 ML BOTTLE PO ONE ×2 (13:00→16:00)
[2020-06-01] MEDS ORDERED: BUMETANIDE INJ 4 MG in IV D5W 24 ML IV ONE (13:00)
[2020-06-01] MEDS ORDERED: CALCIUM CHLORIDE 1,000 MG/10 ML DISP.SYRIN IV ONE (14:28)
[2020-06-01] MEDS ORDERED: FEE EMEERGENCY 1 MIN EA MC ONE (14:28)
[2020-06-01] MEDS ORDERED: EPINEPHRINE (1:10,000) SYRINGE 1 MG/10 ML DISP.SYRIN IVP ONE (14:28)
[2020-06-01] MEDS: MICAFUNGIN SODIUM 100 MG in IV NS 0.9% 100 ML IV SCH (15:38)
--- NOTE | 2020-06-01 16:00 | NUR ---
RT PATIENT REMAINS IN CRITICAL CONDITION. INTUBATED ON [facility] VENT. FIO2 INCREASED TO 100% VENT ALARMS AUDIBLE, ETT SECURE PUSHED IN MARKED AT 24CM. AIRWAY PATENT IN PROPER POSITION. AMBU BAG AT HOB. Addendum: 06/01/20 at 1601 by LINDA HOLLY RT Amended: Links added.
[2020-06-01] MEDS: VANCOMYCIN 1 GM in IV D5W 250ml IV SCH (16:35)
[2020-06-01] MEDS: GABAPENTIN 100 MG CAPSULE GT SCH (16:40)
--- NOTE | 2020-06-01 18:40 | NUR ---
RN CLOSING NOTES PT REMAINS UNSTABLE. INTUBATED, ON VENT. REMAINS ON LEVO, AMY, VASO AND EPI DRIP. IVF INFUSING. KEPT PT ON SUPINE POSITION, 02 SAT AND BP DROPS DURING REPOSITIONING. KEPT COMFORTABLE. FAMILY AWARE OF CURRENT CONDITION. WILL ENDORSE FOR CONTINUITY OF CARE.
--- NOTE | 2020-06-01 19:30 | NUR ---
PT REC'D ORALLY INTUBATED VIA ETT 7.5 SECURED @ 24 CM L[facility] WITH THE SETTINGS OF AC 32, 500,100%,PEEP 10. SX DONE. ALARMS ARE SET AND AUDIBLE. VENT PLUGGED INTO RED OUTLET. AMBU BAG@ BEDSIDE. WILL CONTINUE TO MONITOR T/O THE SHIFT.
[2020-06-01 20:20] LABS: CALCIUM, SERUM 6.8 mg/dL (8.5-10.1); CREATININE 1.7 mg/dL (0.6-1.3); POTASSIUM 4.6 mmol/L (3.5-5.1)
[2020-06-01] MEDS: EPINEPHRINE (1:1000) 10 MG in IV NS 0.9% 240 ML IV PRN ×2 (21:09→23:46)
[2020-06-02] VITALS (71 sets, daily range): BP systolic 22–124; BP diastolic 17–78
[2020-06-02] MEDS ORDERED: VASOPRESSIN INJ 20 UNIT/ML VIAL ONE (00:42)
[2020-06-02] MEDS: PHENYLEPHRINE 50 MG in IV NS 0.9% 245 ML IV PRN ×3 (00:45→09:10)
[2020-06-02] MEDS: VASOPRESSIN INJ 40 UNIT in IV NS 0.9% 38 ML IV PRN ×2 (00:49→11:49)
[2020-06-02] MEDS: BLOOD SUGAR DIAGNOSTIC 1 EACH STRIP IN SCH ×5 (01:03→17:48)
[2020-06-02] MEDS: INSULIN REGULAR, HUMAN 100 UNIT/ML 3 ML VIAL SQ PRN ×5 (01:04→17:54)
[2020-06-02] MEDS: EPINEPHRINE (1:1000) 10 MG in IV NS 0.9% 240 ML IV PRN ×7 (02:33→19:15)
[2020-06-02] MEDS: MEROPENEM 1 G in IV NS 0.9% 100 ML IV SCH ×3 (02:42→17:51)
[2020-06-02] MEDS: Sodium Bicarbonate 150 MEQ in IV D5W 1,000 ML IV PRN ×2 (05:27→18:43)
[2020-06-02 05:30] LABS: BASOPHILS % (AUTO) 0.3 % (0.0-2.0); EOSINOPHILS % (AUTO) 2.4 % (0.0-6.0); HEMATOCRIT 29 % (33-45); HEMOGLOBIN 9.1 g/dL (11.5-14.8); LYMPHOCYTES # (AUTO) 0.6 /CMM (0.8-4.8); LYMPHOCYTES % (AUTO) 5.1 % (20.0-44.0); MEAN CORPUSCULAR HGB CONC 32 g/dl (31.0-36.0); MEAN CORPUSCULAR VOLUME 82 fL (82-100); MONOCYTES # (AUTO) 0.7 /CMM (0.1-1.30); MONOCYTES % (AUTO) 5.6 % (2.0-12.0); NEUTROPHILS # (AUTO) 10.9 /CMM (1.8-8.9); NEUTROPHILS % (AUTO) 86.6 % (43.0-81.0); PLATELET COUNT (AUTO) 342 /CMM (150-450); RED BLOOD CELL COUNT(AUTO) 3.52 MIL/uL (4.0-5.2); WHITE BLOOD COUNT (AUTO) 12.5 K/uL (4.3-11.0)
[2020-06-02 05:42] LABS: CALCIUM, SERUM 7.2 mg/dL (8.5-10.1); CREATININE 2.1 mg/dL (0.6-1.3); MAGNESIUM 2.3 mg/dL (1.8-2.4); PHOSPHORUS 7.7 mg/dL (2.5-4.9)
[2020-06-02] MEDS: LEVOTHYROXINE SODIUM 50 MCG TABLET GT SCH (08:10)
[2020-06-02] MEDS: GABAPENTIN 300 MG CAPSULE GT SCH (08:10)
[2020-06-02] MEDS: APIXABAN 5 MG TABLET GT SCH ×2 (08:10→16:22)
[2020-06-02 09:07] LABS: ABG OXYGEN SATURATION 78.5 % (92.0-98.5); ABG PCO2 42.9 mmHg (35.0-45.0); ABG PH 7.046 (7.350-7.450); ABG PO2 60.1 mmHg (75.0-100.0); COHb 1.7 % (0.5-1.5); O2Hb 77.2 % (94.0-97.0); PEEP,BG 10 cm H2O; SITE, ABG A-Line; VT, ABG 500 mL
[2020-06-02] MEDS: NOREPINEPHRINE 32 MG in IV NS 0.9% 218 ML IV PRN ×2 (09:42→16:34)
[2020-06-02] MEDS: VANCOMYCIN 1 GM in IV D5W 250ml IV SCH (11:26)
[2020-06-02] MEDS ORDERED: PHENYLEPHRINE 100 MG in IV NS 0.9% 240 ML IV PRN (11:30)
[2020-06-02] MEDS: MICAFUNGIN SODIUM 100 MG in IV NS 0.9% 100 ML IV SCH (15:21)
[2020-06-02] MEDS: GABAPENTIN 100 MG CAPSULE GT SCH (17:49)
--- NOTE | 2020-06-02 18:47 | NUR ---
RN CLOSING NOTES NO SIGNIFICANT CHANGE NOTED. PT REMAINS UNSTABLE. INTUBATED, ON VENT. REMAINS ON LEVO, AMY, VASO AND EPI DRIP. IVF INFUSING. KEPT PT ON SUPINE POSITION. UNABLE TO TOLERATE REPOSITIONING. KEPT COMFORTABLE. FAMILY AWARE OF CURRENT CONDITION. WILL ENDORSE FOR CONTINUITY OF CARE.
--- NOTE | 2020-06-02 20:30 | NUR ---
Noted patient becoming progressively bradycardic, now in the 40's ,BP via arterial line reading BPS of 20. 2034 Asystolic CODE was called.(see code sheet).
--- NOTE | 2020-06-02 20:46 | NUR ---
Pronounced @ [address] Dominique
[2020-06-02] MEDS ORDERED: EPINEPHRINE (1:10,000) SYRINGE 1 MG/10 ML DISP.SYRIN ONE (21:00)
[2020-06-02] MEDS ORDERED: SODIUM BICARBONATE SYR 50 MEQ/50 ML DISP.SYRIN ONE (21:00)
[2020-06-02] MEDS ORDERED: DEXTROSE 50%-WATER 50 ML DISP.SYRIN ONE (21:00)
--- NOTE | 2020-06-02 21:10 | NUR ---
Family member called by chance named Malena (sister in law),made her aware patient .She said the patient's does not speak Pashto well ,she states she will let the know. 2111 I called patient's son Uriah and daughter Angélica who are in the demographics listed as next of kin,spokke to Uriah and made him aware that her mom @ 2045.
--- NOTE | 2020-06-02 21:15 | NUR ---
Called [facility] to report spoke to Mckenna.Body is released with Reference # [id number]
--- NOTE | 2020-06-02 21:52 | NUR ---
Received patient intubated orally ,unresponsive,S/P Code .On multiple drips all at maximum dose.(Levophed drip, Neosynephrine drip,Epinephrine drip,Vasopressin drip) for BP support,On NAHCO3 drip. chest tube @ right lateral chest.Arterial line @ right radial artery for accurate BP reading . Addendum: 06/03/20 at 0244 by YANE HAGEN RN Above note should be timed @ 1900 06/02/20 and not 7169
--- NOTE | 2020-06-03 | NUR ---
Body was brought down to the morgue by security .All belongings was brought down with the body
[2020-06-03] MEDS ORDERED: VANCOMYCIN 0.75 GM in IV D5W 250 ML IV SCH (04:00)
[2020-06-03 06:45] VITALS: BP 113/74
== END 2020-06-02 23:57 | disposition expired | DRG 720 ==
LOC: ER 17:58 → OBSVTOIN 23:10 → TRANSITION 23:10 → MED 05-19 14:52 → TELE2 05-19 18:12 → ICUOV2 05-20 14:21 → ICU 05-21 00:49
PROVIDERS: ADMIT Internal Medicine; ATTEND Nurse Practitioner Acute Care
PROC: XW033E5 Introduction of Remdesivir Anti-infective into Peripheral Vein, Percutaneous Approach, New Technology Group 5 (ICD-10-PCS; principal; 2020-05-19)
PROC: XW13325 Transfusion of Convalescent Plasma (Nonautologous) into Peripheral Vein, Percutaneous Approach, New Technology Group 5 (ICD-10-PCS; 2020-05-23)
PROC: 5A1955Z Respiratory Ventilation, Greater than 96 Consecutive Hours (ICD-10-PCS; 2020-05-24)
PROC: 0BH17EZ Insertion of Endotracheal Airway into Trachea, Via Natural or Artificial Opening (ICD-10-PCS; 2020-05-24)
PROC: 02HV33Z Insertion of Infusion Device into Superior Vena Cava, Percutaneous Approach (ICD-10-PCS; 2020-05-24)
PROC: B548ZZA Ultrasonography of Superior Vena Cava, Guidance (ICD-10-PCS; 2020-05-24)
PROC: 03HB33Z Insertion of Infusion Device into Right Radial Artery, Percutaneous Approach (ICD-10-PCS; 2020-05-24)
PROC: 0W9900Z Drainage of Right Pleural Cavity with Drainage Device, Open Approach (ICD-10-PCS; 2020-05-29)
PROC: 5A2204Z Restoration of Cardiac Rhythm, Single (ICD-10-PCS; 2020-06-02)
DX: A41.89 Other specified sepsis (principal); U07.1 COVID-19; E11.10 Type 2 diabetes mellitus with ketoacidosis without coma; J12.89 Other viral pneumonia; J96.01 Acute respiratory failure with hypoxia; J15.9 Unspecified bacterial pneumonia; E11.42 Type 2 diabetes mellitus with diabetic polyneuropathy; Z79.4 Long term (current) use of insulin; E03.9 Hypothyroidism, unspecified; E87.6 Hypokalemia; Z79.899 Other long term (current) drug therapy; E83.39 Other disorders of phosphorus metabolism; D69.6 Thrombocytopenia, unspecified; Z91.14 Patient's other noncompliance with medication regimen; J93.9 Pneumothorax, unspecified; E87.0 Hyperosmolality and hypernatremia; E87.4 Mixed disorder of acid-base balance; N17.9 Acute kidney failure, unspecified; R65.21 Severe sepsis with septic shock; T38.0X5A Adverse effect of glucocorticoids and synthetic analogues, initial encounter; Y92.9 Unspecified place or not applicable
CPT/HCPCS: 31720; 36415; 36569; 36600; 71045-TC; 80048-TC; 80053-TC; 80061-TC; 80076-TC; 80202-TC; 81001; 82010-TC; 82248-TC; 82533; 82550-TC; 82728-TC; 82803-TC; 82947-TC; 82962-TC; 83605-TC; 83615-TC; 83735-TC; 84100-TC; 84443-TC; 84478-TC; 84484-TC; 84703-TC; 85025-TC; 85378-TC; 85385-TC; 85610-TC; 85730-TC; 86140-TC; 86850-TC; 87040-TC; 87070-TC; 87081-TC; 87086-TC; 92950-TC; 94002-TC; 94003-TC; 94760-TC; 94799-TC; A4216; A4217; A6403; C1751; C9803; G0378; J0171; J0282; J0330; J0456; J0696; J1100; J1815; J2060; J2185; J2248; J2370; J2405; J3370; J3480; J3490; J7030; J7040; J7042; J7050; J7060; J7070; P9017-BL; U0003